=== PATIENT | male | born 1975 | race Caucasian/White ===

== ENCOUNTER 2018-02-17 13:50 | Emergency (ER) | payer MEDICAID ==
[~2018-02-17] VITALS: Ht 182.9 cm; Wt 86.2 kg
[2018-02-17 14:04] VITALS: BP 139/80
[2018-02-17] MEDS ORDERED: KETOROLAC TROMETH 60MG/2ML VIAL IM ONE (14:15)
== END 2018-02-17 14:24 | disposition home or self-care (01) ==
LOC: ER 13:50
DX: K08.89 Other specified disorders of teeth and supporting structures (principal); F17.210 Nicotine dependence, cigarettes, uncomplicated; F12.10 Cannabis abuse, uncomplicated
CPT/HCPCS: 96372

== ENCOUNTER 2019-06-25 12:02 | Emergency (ER) | payer SELFPAY ==
[~2019-06-25] VITALS: Ht 182.9 cm; Wt 83.9 kg
[2019-06-25 12:30] VITALS: BP 115/70
[2019-06-25] MEDS ORDERED: TETANUS-DIPTH-ACEL PERTUSSIS 0.5ML SYRG IM ONE (14:45)
== END 2019-06-25 14:57 | disposition home or self-care (01) ==
LOC: ER 12:02
DX: S61.214A Laceration without foreign body of right ring finger without damage to nail, initial encounter (principal); F12.10 Cannabis abuse, uncomplicated; F17.210 Nicotine dependence, cigarettes, uncomplicated; W26.8XXA Contact with other sharp object(s), not elsewhere classified, initial encounter; Y93.89 Activity, other specified; Y99.8 Other external cause status; Y92.89 Other specified places as the place of occurrence of the external cause
CPT/HCPCS: 12001; 90471; 90715

== ENCOUNTER 2021-03-28 08:48 | Emergency (ER) | payer SELFPAY ==
[~2021-03-28] VITALS: Ht 182.9 cm; Wt 90.7 kg
[2021-03-28] MEDS ORDERED: SODIUM CHLORIDE 0.9% 1,000 ML IV ONE ×2 (09:15)
[2021-03-28] MEDS ORDERED: MORPHINE SULFATE 4 MG/ML SYR/VIAL IV ONE (09:15)
[2021-03-28] MEDS ORDERED: PROCHLORPERAZINE EDISYLATE 5 MG/ML 2ML VIAL IV ONE (09:15)
[2021-03-28 10:28] LABS: Eosinophils # (auto) 0 10 ^3/uL (0-0.8); Eosinophils % (auto) 0.1 % (0.0-7.0); Lymphocytes # (auto) 0.6 10 ^3/uL (0.4-5.4); Mean Corpuscular Hemoglobin 33.2 pg (28.0-32.0); Monocytes # (auto) 0.8 10 ^3/uL (0-1.3); Monocytes % (auto) 10.5 % (0.0-12.0)
[2021-03-28 10:29] LABS: Neutrophils % (auto) 79.7 % (37.0-80.0); White Blood Cell 7.1 10^3/uL (4.4-10.8)
[2021-03-28 10:29] LABS: Urine Bacteria FEW /hpf (None Seen); Urine Blood TRACE /uL (Negative); Urine Hyaline Cast FEW /lpf (0 - 2); Urine Mucus MANY (None Seen); Urine Specific Gravity 1.032 (1.001-1.035); Urine WBC 9 /hpf (0 - 3)
[2021-03-28 10:30] LABS: Basophils # (auto) 0.1 10 ^3/uL (0-0.2); Basophils % (auto) 0.8 % (0.0-2.0); Hematocrit 53.4 % (41.0-53.0); Hemoglobin 18.5 g/dL (13.5-17.5); Lymphocytes % (auto) 8.9 % (10.0-50.0); Mean Corpuscular Hgb Conc. 34.7 g/dL (32.0-36.0); Mean Corpuscular Volume 95.6 fL (80.0-100.0); Neutrophils # (auto) 5.7 10 ^3/uL (1.6-8.6); Red Blood Cells 5.58 10^6/uL (4.5-5.90); Red Cell Distribution Width 14.2 % (11.8-14.3)
[2021-03-28 10:48] LABS: Albumin 3.8 g/dL (3.4-5.0); Calcium 9.5 mg/dL (8.5-10.1); Potassium 3.3 mmol/L (3.5-5.1)
[2021-03-28 10:51] LABS: Amphetamine Screen, Urine NEGATIVE (NEGATIVE); Barbiturate Scree,Urine NEGATIVE (NEGATIVE); Cannabinoid Screen, Urine POSITIVE (NEGATIVE); Cocaine Screen, Urine NEGATIVE (NEGATIVE); Phencyclidine Screen, Urine NEGATIVE (NEGATIVE)
[2021-03-28 10:52] LABS: BUN/Creatinine Ratio 13.3; Bilirubin, Total 1.9 mg/dL (0.2-1.0); Total Protein 7.7 g/dL (6.4-8.2)
[2021-03-28 10:58] LABS: Benzodiazephine Screen, Urine NEGATIVE (NEGATIVE); Opiate Scree,Urine NEGATIVE (NEGATIVE)
[2021-03-28 12:15] VITALS: BP 127/82
== END 2021-03-28 12:25 | disposition home or self-care (01) ==
LOC: ER 08:48
DX: R10.13 Epigastric pain (principal); E86.0 Dehydration; N39.0 Urinary tract infection, site not specified; F12.10 Cannabis abuse, uncomplicated; F10.129 Alcohol abuse with intoxication, unspecified; Y90.9 Presence of alcohol in blood, level not specified
CPT/HCPCS: 36415; 71045; 74176; 80053; 80307; 81001; 84484; 85025; 96361; 96374; 96375; 99285; J0780; J2270; J7030

== ENCOUNTER 2021-04-28 13:15 | Inpatient (IN) | payer MEDICAID ==
[~2021-04-28] VITALS: Ht 182.9 cm; Wt 83.3 kg
[2021-04-28] MEDS ORDERED: SODIUM CHLORIDE 0.9% 1,000 ML IV ONE (13:45)
[2021-04-28] MEDS ORDERED: THIAMINE 100mg/ml INJ (200mg/2ml VIAL) IV ONE (13:45)
[2021-04-28] MEDS ORDERED: ONDANSETRON HCL 4 MG/2 ML VIAL IV ONE (13:45)
[2021-04-28 14:44] LABS: Basophils # (auto) 0 10 ^3/uL (0-0.2); Basophils % (auto) 0.1 % (0.0-2.0); Eosinophils # (auto) 0 10 ^3/uL (0-0.8); Hematocrit 43.7 % (41.0-53.0); Hemoglobin 15.5 g/dL (13.5-17.5); Lymphocytes # (auto) 0.6 10 ^3/uL (0.4-5.4); Lymphocytes % (auto) 5.7 % (10.0-50.0); Mean Corpuscular Hemoglobin 33.8 pg (28.0-32.0); Mean Corpuscular Hgb Conc. 35.5 g/dL (32.0-36.0); Mean Corpuscular Volume 95.3 fL (80.0-100.0); Monocytes # (auto) 1.1 10 ^3/uL (0-1.3); Neutrophils # (auto) 8.1 10 ^3/uL (1.6-8.6); Neutrophils % (auto) 83.2 % (37.0-80.0); Nucleated Red Blood Cells % 0.4 %; Red Blood Cells 4.59 10^6/uL (4.5-5.90); Red Cell Distribution Width 13.7 % (11.8-14.3); White Blood Cell 9.7 10^3/uL (4.4-10.8)
[2021-04-28 14:57] LABS: INR 1.13 (0.9-1.15); Partial Thromboplastin Time 25.4 sec (23.6-33.0)
[2021-04-28 15:11] LABS: Albumin 3.7 g/dL (3.4-5.0); BUN/Creatinine Ratio 25.4; Total Protein 7.6 g/dL (6.4-8.2)
[2021-04-28 15:15] LABS: Potassium 2.8 mmol/L (3.5-5.1)
[2021-04-28] MEDS ORDERED: POTASSIUM EFFERVESENT TAB 25 MEQ PO ONE (15:45)
[2021-04-28] MEDS ORDERED: LACTATED RINGER'S 1,000 ML IV ONE (18:45)
[2021-04-28] MEDS ORDERED: LORazepam 2MG/ML-1ML VIAL IV ONE (21:00)
[2021-04-28 21:29] LABS: Urine Bacteria NONE SEEN /hpf (None Seen); Urine Blood Negative /uL (Negative); Urine Specific Gravity 1.006 (1.001-1.035); Urine WBC 1 /hpf (0 - 3)
[2021-04-28] MEDS: POTASSIUM CHL 20MEQ/50ML 50 ML IV SCH ×2 (22:00→23:56)
[2021-04-28] MEDS ORDERED: ONDANSETRON HCL 4 MG/2 ML VIAL IV PRN (23:00)
[2021-04-28] MEDS ORDERED: ACETAMINOPHEN 325 MG TAB PO PRN (23:00)
[2021-04-28] MEDS ORDERED: DOCUSATE SOD 100 MG CAP PO PRN (23:00)
[2021-04-28] MEDS: SODIUM CHLORIDE 0.9% 1,000 ML IV SCH (23:55)
[2021-04-29] VITALS (7 sets, daily range): BP systolic 100–135; BP diastolic 62–83
[2021-04-29] MEDS ORDERED: MORPHINE SULFATE INJECTION 2 MG/ML SYRG IV PRN
[2021-04-29] MEDS ORDERED: NITROGLYCERIN 0.4 MG SL TAB SL PRN
[2021-04-29] MEDS: HYDROcodone-ACET 5/325MG TAB PO PRN ×2 (00:15→10:41)
[2021-04-29 05:03] LABS: Basophils # (auto) 0 10 ^3/uL (0-0.2); Basophils % (auto) 0.6 % (0.0-2.0); Eosinophils # (auto) 0 10 ^3/uL (0-0.8); Eosinophils % (auto) 0.1 % (0.0-7.0); Hematocrit 36.6 % (41.0-53.0); Lymphocytes # (auto) 0.7 10 ^3/uL (0.4-5.4); Lymphocytes % (auto) 9.1 % (10.0-50.0); Mean Corpuscular Hemoglobin 33.5 pg (28.0-32.0); Mean Corpuscular Hgb Conc. 35.6 g/dL (32.0-36.0); Monocytes # (auto) 0.8 10 ^3/uL (0-1.3); Monocytes % (auto) 10.4 % (0.0-12.0); Neutrophils # (auto) 6.1 10 ^3/uL (1.6-8.6); Neutrophils % (auto) 79.8 % (37.0-80.0); Nucleated Red Blood Cells % 0.5 %; Red Blood Cells 3.89 10^6/uL (4.5-5.90); Red Cell Distribution Width 13.7 % (11.8-14.3); White Blood Cell 7.6 10^3/uL (4.4-10.8)
[2021-04-29 05:25] LABS: Potassium 3.1 mmol/L (3.5-5.1)
[2021-04-29 05:32] LABS: Albumin 2.7 g/dL (3.4-5.0); BUN/Creatinine Ratio 38.8; Bilirubin, Total 6.4 mg/dL (0.2-1.0); Calcium 8.8 mg/dL (8.5-10.1); Total Protein 5.4 g/dL (6.4-8.2)
[2021-04-29] MEDS: LORazepam 2MG/ML-1ML VIAL IV PRN ×3 (07:00→21:25)
[2021-04-29] MEDS: THIAMINE HCL 100 MG TAB PO SCH (10:00)
[2021-04-29] MEDS: ASCORBIC ACID 500 MG TAB PO SCH ×2 (10:00→21:24)
[2021-04-29] MEDS: FOLIC ACID 1 MG TAB PO SCH (10:00)
[2021-04-29] MEDS: ZINC SULFATE 220mg CAP or TAB PO SCH (10:00)
[2021-04-29] MEDS: MULTIPLE VITAMIN TAB PO SCH (10:37)
[2021-04-29] MEDS ORDERED: PANTOPRAZOLE 40 MG/10 ML VIAL INJ IV ONE (11:15)
[2021-04-29] MEDS ORDERED: POTASSIUM CHL 20 Meq TABLET PO ONE (14:15)
[2021-04-29] MEDS: SODIUM CHLORIDE 0.9% 1,000 ML IV SCH (15:40)
[2021-04-30] MEDS: LORazepam 2MG/ML-1ML VIAL IV PRN ×3 (03:48→17:16)
[2021-04-30 05:02] VITALS: BP 126/88
[2021-04-30] MEDS: SODIUM CHLORIDE 0.9% 1,000 ML IV SCH (06:58)
[2021-04-30] MEDS: ASCORBIC ACID 500 MG TAB PO SCH ×2 (09:39→22:01)
[2021-04-30] MEDS: FOLIC ACID 1 MG TAB PO SCH (09:39)
[2021-04-30] MEDS: PANTOPRAZOLE 40 MG/10 ML VIAL INJ IV SCH (09:39)
[2021-04-30] MEDS: MULTIPLE VITAMIN TAB PO SCH (09:39)
[2021-04-30] MEDS: ZINC SULFATE 220mg CAP or TAB PO SCH (09:39)
[2021-04-30] MEDS: THIAMINE HCL 100 MG TAB PO SCH (09:39)
[2021-04-30 10:35] VITALS: BP 128/87
[2021-04-30 11:37] VITALS: BP 119/81
[2021-04-30 16:40] VITALS: BP 115/71
[2021-04-30 21:40] VITALS: BP 130/76
[2021-04-30] MEDS: HYDROcodone-ACET 5/325MG TAB PO PRN (22:02)
[2021-05-01] MEDS: SODIUM CHLORIDE 0.9% 1,000 ML IV SCH (01:00)
[2021-05-01] MEDS: LORazepam 2MG/ML-1ML VIAL IV PRN (01:10)
[2021-05-01 04:38] VITALS: BP 132/76
[2021-05-01 08:56] VITALS: BP_SYST 108; BP_SYST 121; BP_DIAS 59; BP_DIAS 91
[2021-05-01] MEDS: PANTOPRAZOLE 40 MG/10 ML VIAL INJ IV SCH (10:25)
[2021-05-01] MEDS: ZINC SULFATE 220mg CAP or TAB PO SCH (10:25)
[2021-05-01] MEDS: MULTIPLE VITAMIN TAB PO SCH (10:25)
[2021-05-01] MEDS: ASCORBIC ACID 500 MG TAB PO SCH (10:25)
[2021-05-01] MEDS: FOLIC ACID 1 MG TAB PO SCH (10:26)
[2021-05-01] MEDS: THIAMINE HCL 100 MG TAB PO SCH (10:26)
[2021-05-01 10:52] LABS: Hepatitis B Surface Antibody Negative (Negative)
[2021-05-01 11:13] VITALS: BP 121/91
[2021-05-01 11:22] LABS: Hepatitis A Total Antibody Negative (Negative)
[2021-05-01 14:39] LABS: Hepatitis C Antibody Negative (Negative)
== END 2021-05-01 12:49 | disposition home or self-care (01) | DRG 241 ==
LOC: ER 13:15 → EDBD 13:15 → OVERFLOW 04-29 → CENTRAL 04-29 01:01
PROVIDERS: ADMIT Nurse Practitioner Family; ATTEND Family Medicine
DX: K29.20 Alcoholic gastritis without bleeding (principal); E87.1 Hypo-osmolality and hyponatremia; K76.0 Fatty (change of) liver, not elsewhere classified; F10.139 Alcohol abuse with withdrawal, unspecified; E86.0 Dehydration; Y90.0 Blood alcohol level of less than 20 mg/100 ml; E87.6 Hypokalemia; K20.90 Esophagitis, unspecified without bleeding; F17.210 Nicotine dependence, cigarettes, uncomplicated; F12.90 Cannabis use, unspecified, uncomplicated; E87.5 Hyperkalemia; Z20.822 Contact with and (suspected) exposure to COVID-19; Z71.41 Alcohol abuse counseling and surveillance of alcoholic
CPT/HCPCS: 36415; 74176; 76705; 80053; 80320; 81001; 83690; 83735; 85025; 85610; 85730; 86704; 86706; 86708; 86803; 87340; 87426; 93005; 96361; 96374; 96375; C9113; G0378; J2405

== ENCOUNTER 2022-02-15 10:11 | Inpatient (IN) | payer OTHER ==
[~2022-02-15] VITALS: Ht 182.9 cm; Wt 178.8 kg
[2022-02-15] MEDS ORDERED: SODIUM CHLORIDE 0.9% 1,000 ML IV ONE (10:30)
[2022-02-15] MEDS ORDERED: THIAMINE 100mg/ml INJ (200mg/2ml VIAL) IV ONE (10:45)
[2022-02-15 11:09] LABS: Basophils # (auto) 0 10 ^3/uL (0-0.2); Basophils % (auto) 0.2 % (0.0-2.0); Eosinophils # (auto) 0 10 ^3/uL (0-0.8); Eosinophils % (auto) 0.1 % (0.0-7.0); Hematocrit 43.6 % (41.0-53.0); Hemoglobin 14.7 g/dL (13.5-17.5); Lymphocytes # (auto) 0.6 10 ^3/uL (0.4-5.4); Lymphocytes % (auto) 4.4 % (10.0-50.0); Mean Corpuscular Hemoglobin 32.4 pg (28.0-32.0); Mean Corpuscular Hgb Conc. 33.8 g/dL (32.0-36.0); Monocytes # (auto) 1.5 10 ^3/uL (0-1.3); Monocytes % (auto) 11.5 % (0.0-12.0); Neutrophils # (auto) 10.7 10 ^3/uL (1.6-8.6); Neutrophils % (auto) 83.8 % (37.0-80.0); Nucleated Red Blood Cells % 0.1 %; Red Blood Cells 4.54 10^6/uL (4.5-5.90); Red Cell Distribution Width 13.5 % (11.8-14.3); White Blood Cell 12.8 10^3/uL (4.4-10.8)
[2022-02-15 11:27] LABS: Amphetamine Screen, Urine NEGATIVE (NEGATIVE); Barbiturate Scree,Urine NEGATIVE (NEGATIVE); Benzodiazephine Screen, Urine NEGATIVE (NEGATIVE); Cannabinoid Screen, Urine NEGATIVE (NEGATIVE); Cocaine Screen, Urine NEGATIVE (NEGATIVE); Opiate Scree,Urine NEGATIVE (NEGATIVE); Phencyclidine Screen, Urine NEGATIVE (NEGATIVE)
[2022-02-15 11:31] LABS: Albumin 3.7 g/dL (3.4-5.0); Anion Gap 13 (5-15); Blood Alcohol < 3.0 mg/dL (0-5); Calcium 9.9 mg/dL (8.5-10.1); Carbon Dioxide 36 mmol/L (21-32); Chloride 78 mmol/L (98-107); Glucose 174 mg/dL (74-106); Sodium 127 mmol/L (136-145)
[2022-02-15 11:46] LABS: Alanine Aminotransferase 110 U/L (16-61); Alkaline Phosphatase 120 U/L (45-117); Aspartate Aminotransferase 115 U/L (15-37); BUN/Creatinine Ratio 41.3; Blood Urea Nitrogen 64 mg/dL (7-18); GFR African American 62 mL/min; GFR Non-African American 51 mL/min; Total Protein 7.6 g/dL (6.4-8.2)
[2022-02-15 11:47] LABS: Potassium 2.4 mmol/L (3.5-5.1)
[2022-02-15] MEDS ORDERED: cefTRIAXone 1GM/50ML D5W 50 ML IV ONE (13:45)
[2022-02-15] MEDS: POTASSIUM CHL 20MEQ/100ML 100 ML IV SCH ×2 (14:47→16:34)
[2022-02-15] MEDS ORDERED: chlordiazePOXIDE HCL 25 MG CAP PO PRN (16:45)
[2022-02-15] MEDS ORDERED: ONDANSETRON HCL 4 MG/2 ML VIAL IV PRN (16:45)
[2022-02-15] MEDS ORDERED: LORazepam 2MG/ML-1ML VIAL IV PRN (16:45)
[2022-02-15] MEDS ORDERED: PANTOPRAZOLE 40 MG/10 ML VIAL INJ IV ONE (16:45)
[2022-02-15] MEDS ORDERED: chlordiazePOXIDE HCL 25 MG CAP PO ONE (16:45)
[2022-02-15] MEDS ORDERED: MORPHINE SULFATE INJ 2 MG/ml SYRG IV PRN (17:00)
[2022-02-15] MEDS ORDERED: POTASSIUM EFFERVESENT TAB 25 MEQ PO ONE (17:00)
[2022-02-15] MEDS ORDERED: NITROGLYCERIN 0.4 MG SL TAB SL PRN (17:00)
[2022-02-15] MEDS ORDERED: DEXTROSE (50%) 50ML SYRG IV PRN (17:15)
[2022-02-15] MEDS ORDERED: levoFLOXacin 500MG 100 ML IV ONE (17:15)
[2022-02-15] MEDS: SODIUM CHLORIDE 0.9% 1,000 ML IV SCH (17:30)
[2022-02-15 17:34] LABS: Amylase 33 U/L (25-115); Lipase 63 U/L (73-393)
[2022-02-15] MEDS ORDERED: LORazepam 2MG/ML-1ML VIAL IV ONE (21:00)
[2022-02-15] MEDS ORDERED: LORazepam 2MG/ML-1ML VIAL IM ONE (21:00)
[2022-02-15] MEDS: ACCU-CHEK COMFORT CURVE STRIP VI SCH (22:00)
[2022-02-15] MEDS: InsuLIN REG 1unit/0.01ml Soln (100units/ml) SC SCH (22:00)
[2022-02-15] MEDS ORDERED: diphenhdrAMINE HCL 50 MG/1 ML VL IM ONE (22:45)
[2022-02-15] MEDS ORDERED: LORazepam 2MG/ML-1ML VIAL IM PRN (22:45)
[2022-02-15] MEDS ORDERED: HALOPERIDOL LACTATE 5 MG/ML INJ VIAL IM ONE (22:45)
[2022-02-15] MEDS ORDERED: LORazepam 2MG/ML-1ML VIAL ONE (22:49)
[2022-02-15] MEDS ORDERED: diphenhdrAMINE HCL 50 MG/1 ML VL ONE (22:49)
[2022-02-15] MEDS ORDERED: HALOPERIDOL LACTATE 5 MG/ML INJ VIAL ONE (22:50)
[2022-02-16] MEDS ORDERED: LORazepam 2MG/ML-1ML VIAL IV ONE ×2 (01:45→04:45)
[2022-02-16] MEDS: FOLIC ACID 1 MG, MULTIPLE VITAMIN 10 ML, MAGNESIUM SULF SDV 50% 8 MEQ, THIAMINE INJ 100... INJ SCH ×10 (01:46→18:27)
[2022-02-16 04:55] LABS: Basophils # (auto) 0 10 ^3/uL (0-0.2); Basophils % (auto) 0.1 % (0.0-2.0); Eosinophils # (auto) 0 10 ^3/uL (0-0.8); Eosinophils % (auto) 0.1 % (0.0-7.0); Hematocrit 39.3 % (41.0-53.0); Hemoglobin 13.4 g/dL (13.5-17.5); Lymphocytes # (auto) 1.1 10 ^3/uL (0.4-5.4); Lymphocytes % (auto) 13.3 % (10.0-50.0); Mean Corpuscular Hemoglobin 32.7 pg (28.0-32.0); Mean Corpuscular Volume 96.1 fL (80.0-100.0); Monocytes # (auto) 1.2 10 ^3/uL (0-1.3); Monocytes % (auto) 14.5 % (0.0-12.0); Nucleated Red Blood Cells % 0.1 %; Red Blood Cells 4.09 10^6/uL (4.5-5.90); Red Cell Distribution Width 13.3 % (11.8-14.3); White Blood Cell 8.3 10^3/uL (4.4-10.8)
[2022-02-16 05:21] LABS: Albumin 3.2 g/dL (3.4-5.0); BUN/Creatinine Ratio 59.7; Calcium 8.6 mg/dL (8.5-10.1)
[2022-02-16 05:31] LABS: Bilirubin, Total 2.2 mg/dL (0.2-1.0); Total Protein 6.2 g/dL (6.4-8.2)
[2022-02-16 05:43] LABS: Potassium 2.7 mmol/L (3.5-5.1)
[2022-02-16] MEDS: InsuLIN REG 1unit/0.01ml Soln (100units/ml) SC SCH ×4 (07:00→22:00)
[2022-02-16] MEDS: POTASSIUM CHL 20MEQ/100ML 100 ML IV SCH ×3 (07:30→12:52)
[2022-02-16] MEDS: ACCU-CHEK COMFORT CURVE STRIP VI SCH ×4 (10:41→22:17)
[2022-02-16] MEDS: ENOXAPARIN SOD 40 MG/0.4 ML SYRINGE SC SCH (10:43)
[2022-02-16] MEDS: PANTOPRAZOLE 40 MG/10 ML VIAL INJ IV SCH (10:43)
[2022-02-16] MEDS: SODIUM CHLORIDE 0.9% 1,000 ML IV SCH (10:43)
[2022-02-16] MEDS: levoFLOXacin 500MG 100 ML IV SCH (17:29)
[2022-02-16] MEDS ORDERED: POTASSIUM CHL 20MEQ/100ML 100 ML IV ONE (21:15)
[2022-02-17] VITALS (7 sets, daily range): BP systolic 96–111; BP diastolic 64–75
[2022-02-17] MEDS: SODIUM CHLORIDE 0.9% 1,000 ML IV SCH ×2 (03:18→20:38)
[2022-02-17 06:07] LABS: Basophils # (auto) 0 10 ^3/uL (0-0.2); Basophils % (auto) 0.1 % (0.0-2.0); Eosinophils # (auto) 0.1 10 ^3/uL (0-0.8); Eosinophils % (auto) 1.6 % (0.0-7.0); Hematocrit 34.4 % (41.0-53.0); Hemoglobin 11.7 g/dL (13.5-17.5); Lymphocytes # (auto) 0.8 10 ^3/uL (0.4-5.4); Lymphocytes % (auto) 16.1 % (10.0-50.0); Mean Corpuscular Volume 97.1 fL (80.0-100.0); Monocytes # (auto) 0.9 10 ^3/uL (0-1.3); Neutrophils # (auto) 3.3 10 ^3/uL (1.6-8.6); Neutrophils % (auto) 64.1 % (37.0-80.0); Nucleated Red Blood Cells % 0.1 %; Red Blood Cells 3.54 10^6/uL (4.5-5.90); Red Cell Distribution Width 13.6 % (11.8-14.3); White Blood Cell 5.2 10^3/uL (4.4-10.8)
[2022-02-17 06:08] LABS: Monocytes % (auto) 18.1 % (0.0-12.0)
[2022-02-17] MEDS: InsuLIN REG 1unit/0.01ml Soln (100units/ml) SC SCH ×4 (06:10→21:40)
[2022-02-17] MEDS: ACCU-CHEK COMFORT CURVE STRIP VI SCH ×4 (06:11→21:40)
[2022-02-17 06:12] LABS: Albumin 2.7 g/dL (3.4-5.0); Calcium 8.3 mg/dL (8.5-10.1)
[2022-02-17 06:16] LABS: BUN/Creatinine Ratio 41.2; Bilirubin, Total 1.6 mg/dL (0.2-1.0); Total Protein 5.3 g/dL (6.4-8.2)
[2022-02-17] MEDS: HYDROcodone-ACET 5/325MG TAB PO PRN (06:58)
[2022-02-17] MEDS: PANTOPRAZOLE 40 MG/10 ML VIAL INJ IV SCH (08:39)
[2022-02-17] MEDS: ENOXAPARIN SOD 40 MG/0.4 ML SYRINGE SC SCH (08:39)
[2022-02-17] MEDS: levoFLOXacin 500MG 100 ML IV SCH (08:44)
[2022-02-17] MEDS ORDERED: POTASSIUM CHL 20 Meq TABLET PO ONE (10:30)
[2022-02-17] MEDS: FOLIC ACID 1 MG, MULTIPLE VITAMIN 10 ML, MAGNESIUM SULF SDV 50% 8 MEQ, THIAMINE INJ 100... INJ SCH ×5 (12:33)
[2022-02-17] MEDS ORDERED: chlordiazePOXIDE HCL 25 MG CAP PO PRN (14:30)
[2022-02-17] MEDS: chlordiazePOXIDE HCL 25 MG CAP PO SCH ×4 (14:58→20:35)
[2022-02-17] MEDS ORDERED: MORPHINE SULFATE 4 MG/ML SYR/VIAL IV ONE (18:45)
[2022-02-17] MEDS ORDERED: ASPirin 325 MG TAB PO ONE (18:45)
[2022-02-17] MEDS ORDERED: SODIUM CHLORIDE 0.9% 1,000 ML IV ONE (19:00)
[2022-02-17] MEDS ORDERED: GABAPENTIN 400 MG CAP PO ONE (21:15)
[2022-02-17] MEDS: GUANFACINE 1 MG PO SCH (22:00)
[2022-02-18] MEDS: chlordiazePOXIDE HCL 25 MG CAP PO SCH ×4 (03:50→21:25)
[2022-02-18 04:48] VITALS: BP 106/75
[2022-02-18] MEDS: GABAPENTIN 400 MG CAP PO SCH ×3 (05:49→21:25)
[2022-02-18] MEDS: ACCU-CHEK COMFORT CURVE STRIP VI SCH ×4 (05:58→21:30)
[2022-02-18] MEDS: InsuLIN REG 1unit/0.01ml Soln (100units/ml) SC SCH ×4 (05:58→21:30)
[2022-02-18] MEDS: GUANFACINE 1 MG PO SCH ×3 (06:00→21:25)
[2022-02-18 09:16] VITALS: BP 110/68
[2022-02-18] MEDS ORDERED: THIAMINE 100mg/ml INJ (200mg/2ml VIAL) IV SCH (10:00)
[2022-02-18 10:17] LABS: Hematocrit 33.4 % (41.0-53.0); Hemoglobin 11.2 g/dL (13.5-17.5); Mean Corpuscular Hemoglobin 33.1 pg (28.0-32.0); Mean Corpuscular Hgb Conc. 33.7 g/dL (32.0-36.0); Mean Corpuscular Volume 98.2 fL (80.0-100.0); Red Cell Distribution Width 13.3 % (11.8-14.3); White Blood Cell 7.9 10^3/uL (4.4-10.8)
[2022-02-18 10:20] LABS: Band Neutrophils % (manual) 0; Basophils % (manual) 0 (0.0-2.0); Blast Cells 0; Metamyelocytes % 0; Myelocytes % 0; Promyelocytes % 0; Reactive Lymphocytes 0
[2022-02-18] MEDS: ENOXAPARIN SOD 40 MG/0.4 ML SYRINGE SC SCH (10:30)
[2022-02-18] MEDS: PANTOPRAZOLE 40 MG/10 ML VIAL INJ IV SCH (10:30)
[2022-02-18] MEDS: levoFLOXacin 500MG 100 ML IV SCH (10:31)
[2022-02-18 10:58] LABS: Urine Bacteria NONE SEEN /hpf (None Seen); Urine Blood 3+ /uL (Negative); Urine Specific Gravity 1.006 (1.001-1.035); Urine WBC 10 /hpf (0 - 3)
[2022-02-18] MEDS: SODIUM CHLORIDE 0.9% 1,000 ML IV SCH (11:25)
[2022-02-18 11:43] LABS: Eosinophils % (manual) 4 (0-7); Lymphocytes % (manual) 13 (10.0-50.0); Monocytes % (manual) 17 (0-12)
[2022-02-18 12:35] VITALS: BP 99/60
[2022-02-18] MEDS: SODIUM CHL 0.9% IV SCH (12:40)
[2022-02-18] MEDS: THIAMINE IV SCH (12:40)
[2022-02-18 12:47] LABS: Cholesterol 144 mg/dL (< 200); HDL Cholesterol 55 mg/dL (40-59); LDL Cholesterol 61 mg/dL (< 100); Triglycerides 69 mg/dL (< 150)
[2022-02-18] MEDS: FOLIC ACID 1 MG, MULTIPLE VITAMIN 10 ML, MAGNESIUM SULF SDV 50% 8 MEQ, THIAMINE INJ 100... INJ SCH ×15 (12:49→18:49)
[2022-02-18 17:03] VITALS: BP 104/70
[2022-02-18] MEDS: HYDROcodone-ACET 5/325MG TAB PO PRN (19:45)
[2022-02-18 22:00] VITALS: BP 128/68
[2022-02-19] VITALS (7 sets, daily range): BP systolic 86–108; BP diastolic 57–73
[2022-02-19] MEDS: chlordiazePOXIDE HCL 25 MG CAP PO SCH ×4 (02:31→21:48)
[2022-02-19] MEDS: SODIUM CHLORIDE 0.9% 1,000 ML IV SCH ×2 (04:05→20:45)
[2022-02-19] MEDS: HYDROcodone-ACET 5/325MG TAB PO PRN ×3 (05:25→21:47)
[2022-02-19] MEDS: GABAPENTIN 400 MG CAP PO SCH ×3 (05:25→21:48)
[2022-02-19] MEDS: InsuLIN REG 1unit/0.01ml Soln (100units/ml) SC SCH (06:20)
[2022-02-19] MEDS: ACCU-CHEK COMFORT CURVE STRIP VI SCH (06:21)
[2022-02-19 06:25] LABS: Hematocrit 34.5 % (41.0-53.0); Hemoglobin 11.6 g/dL (13.5-17.5); Mean Corpuscular Hemoglobin 33.6 pg (28.0-32.0); Mean Corpuscular Hgb Conc. 33.6 g/dL (32.0-36.0); Red Blood Cells 3.45 10^6/uL (4.5-5.90); Red Cell Distribution Width 13.5 % (11.8-14.3); White Blood Cell 8.8 10^3/uL (4.4-10.8)
[2022-02-19 06:37] LABS: Potassium 5.2 mmol/L (3.5-5.1)
[2022-02-19 06:43] LABS: Band Neutrophils % (manual) 0; Basophils % (manual) 0 (0.0-2.0); Blast Cells 0; Metamyelocytes % 0; Myelocytes % 0; Promyelocytes % 0; Reactive Lymphocytes 0
[2022-02-19 06:45] LABS: Albumin 2.7 g/dL (3.4-5.0); BUN/Creatinine Ratio 29.3; Bilirubin, Total 0.7 mg/dL (0.2-1.0); Calcium 9.5 mg/dL (8.5-10.1); Total Protein 5.8 g/dL (6.4-8.2)
[2022-02-19 08:43] LABS: Eosinophils % (manual) 1 (0-7); Lymphocytes % (manual) 14 (10.0-50.0); Monocytes % (manual) 23 (0-12)
[2022-02-19] MEDS: levoFLOXacin 500MG 100 ML IV SCH (08:48)
[2022-02-19] MEDS: PANTOPRAZOLE 40 MG/10 ML VIAL INJ IV SCH (08:49)
[2022-02-19] MEDS: GUANFACINE 1 MG PO SCH (08:56)
[2022-02-19] MEDS: THIAMINE IV SCH (10:57)
[2022-02-19] MEDS: SODIUM CHL 0.9% IV SCH (10:57)
[2022-02-19] MEDS ORDERED: MANNITOL FTV 25% 12.5 GM/50 ML 50 ML IV ONE (14:00)
[2022-02-19] MEDS ORDERED: FOLIC ACID 1 MG, MULTIPLE VITAMIN 10 ML, MAGNESIUM SULF SDV 50% 8 MEQ, THIAMINE INJ 100... INJ SCH ×5 (20:00)
[2022-02-20] MEDS: chlordiazePOXIDE HCL 25 MG CAP PO SCH ×2 (03:10→08:36)
[2022-02-20 04:29] VITALS: BP 111/71
[2022-02-20 05:27] LABS: Hematocrit 34.2 % (41.0-53.0); Hemoglobin 11.4 g/dL (13.5-17.5); Mean Corpuscular Hemoglobin 33.3 pg (28.0-32.0); Mean Corpuscular Hgb Conc. 33.3 g/dL (32.0-36.0); Red Blood Cells 3.42 10^6/uL (4.5-5.90); Red Cell Distribution Width 13.8 % (11.8-14.3); White Blood Cell 8.9 10^3/uL (4.4-10.8)
[2022-02-20 05:33] LABS: Basophils % (manual) 0 (0.0-2.0); Blast Cells 0; Myelocytes % 0; Promyelocytes % 0; Reactive Lymphocytes 0
[2022-02-20 05:37] LABS: Albumin 2.7 g/dL (3.4-5.0); Magnesium 2.2 mg/dL (1.6-2.6)
[2022-02-20 05:39] LABS: BUN/Creatinine Ratio 24.1
[2022-02-20 05:41] LABS: Bilirubin, Total 0.5 mg/dL (0.2-1.0); Total Protein 5.7 g/dL (6.4-8.2)
[2022-02-20] MEDS ORDERED: GABAPENTIN 300 MG CAP PO SCH (06:00)
[2022-02-20] MEDS: HYDROcodone-ACET 5/325MG TAB PO PRN (06:29)
[2022-02-20 08:21] LABS: Band Neutrophils % (manual) 5; Eosinophils % (manual) 3 (0-7); Lymphocytes % (manual) 12 (10.0-50.0); Metamyelocytes % 2; Monocytes % (manual) 11 (0-12)
[2022-02-20 08:30] VITALS: BP 99/59
[2022-02-20] MEDS: PANTOPRAZOLE 40 MG/10 ML VIAL INJ IV SCH (08:36)
[2022-02-20] MEDS: THIAMINE IV SCH (08:37)
[2022-02-20] MEDS: SODIUM CHL 0.9% IV SCH (08:37)
[2022-02-20] MEDS ORDERED: FOLI1TAB6 PO (09:41)
[2022-02-20] MEDS ORDERED: THIA100T5 PO (09:41)
[2022-02-20] MEDS ORDERED: CHL25C PO (09:41)
[2022-02-20] MEDS ORDERED: GABA300C10 PO (09:41)
[2022-02-20] MEDS ORDERED: PANT40T PO (09:41)
[2022-02-20 10:47] VITALS: BP 99/59
[2022-02-20 12:30] VITALS: BP 100/62
[2022-02-22] MEDS ORDERED: GABAPENTIN 300 MG CAP PO SCH (06:00)
== END 2022-02-20 13:47 | disposition home or self-care (01) | DRG 469 ==
LOC: ER 10:11 → TELE 16:59 → TELE-WESTW 02-16 15:47
PROVIDERS: ADMIT Nurse Practitioner Family; ATTEND Family Medicine
DX: N17.9 Acute kidney failure, unspecified (principal); F10.231 Alcohol dependence with withdrawal delirium; E87.1 Hypo-osmolality and hyponatremia; E86.0 Dehydration; E87.6 Hypokalemia; F31.9 Bipolar disorder, unspecified; F20.9 Schizophrenia, unspecified; N20.0 Calculus of kidney; E87.5 Hyperkalemia; Z20.822 Contact with and (suspected) exposure to COVID-19; D72.829 Elevated white blood cell count, unspecified; F12.90 Cannabis use, unspecified, uncomplicated; F17.210 Nicotine dependence, cigarettes, uncomplicated; F19.10 Other psychoactive substance abuse, uncomplicated; Z71.41 Alcohol abuse counseling and surveillance of alcoholic
CPT/HCPCS: 36415; 70450; 70551; 71045; 74176; 76705; 76856; 80053; 80061; 80307; 80320; 81001; 82140; 82150; 82728; 82962; 83036; 83605; 83690; 83735; 83880; 84443; 84484; 85007; 85025; 85027; 86704; 86706; 86708; 86803; 87040; 87086; 87340; 87426; 93306; 95819; 96361; 96365; 97116; 97162; 97530; C9113; G0378; J0696; J1956; J3480

== ENCOUNTER 2022-08-25 10:47 | Emergency (ER) | payer OTHER ==
[~2022-08-25 10:47] MED LIST: CHL25C PO; FOLI1TAB6 PO; GABA300C10 PO; PANT40T PO; THIA100T5 PO
[2022-08-25] MEDS ORDERED: SODIUM CHLORIDE 0.9% 1,000 ML IV ONE (12:15)
[2022-08-25] MEDS ORDERED: KETOROLAC TROMETH 30 MG/ML 1ML VIAL IV ONE (12:15)
[2022-08-25 12:49] LABS: Basophils # (auto) 0.1 10 ^3/uL (0-0.2); Basophils % (auto) 1.2 % (0.0-2.0); Eosinophils # (auto) 0.3 10 ^3/uL (0-0.8); Eosinophils % (auto) 3.1 % (0.0-7.0); Hematocrit 42.5 % (41.0-53.0); Hemoglobin 14.4 g/dL (13.5-17.5); Lymphocytes # (auto) 1.4 10 ^3/uL (0.4-5.4); Lymphocytes % (auto) 16.8 % (10.0-50.0); Mean Corpuscular Hemoglobin 29.2 pg (28.0-32.0); Mean Corpuscular Hgb Conc. 33.8 g/dL (32.0-36.0); Mean Corpuscular Volume 86.5 fL (80.0-100.0); Monocytes # (auto) 0.6 10 ^3/uL (0-1.3); Monocytes % (auto) 6.7 % (0.0-12.0); Neutrophils % (auto) 72.2 % (37.0-80.0); Red Blood Cells 4.92 10^6/uL (4.5-5.90); Red Cell Distribution Width 14.4 % (11.8-14.3); White Blood Cell 8.3 10^3/uL (4.4-10.8)
[2022-08-25 12:59] LABS: Albumin 3.4 g/dL (3.4-5.0); Calcium 9.3 mg/dL (8.5-10.1)
[2022-08-25 13:02] LABS: BUN/Creatinine Ratio 20.3 (10.0-20.0); Bilirubin, Total 0.4 mg/dL (0.2-1.0); Total Protein 6.6 g/dL (6.4-8.2)
[2022-08-25] MEDS ORDERED: IOHEXOL 300 MG/ML 100ML BOTTLE IJ ONE (13:47)
[2022-08-25 14:36] LABS: Urine WBC None Seen /hpf (0 - 3)
[2022-08-25 15:04] LABS: Urine Bacteria NONE SEEN /hpf (None Seen); Urine Blood Negative /uL (Negative); Urine Mucus FEW (None Seen)
[2022-08-25 15:12] LABS: Urine Specific Gravity > 1.050 (1.001-1.035)
[2022-08-25 17:00] VITALS: BP 121/70
== END 2022-08-25 17:02 | disposition home or self-care (01) ==
LOC: ER 10:47
DX: K40.21 Bilateral inguinal hernia, without obstruction or gangrene, recurrent (principal); F17.210 Nicotine dependence, cigarettes, uncomplicated; F12.10 Cannabis abuse, uncomplicated
CPT/HCPCS: 36415; 74177; 80053; 81001; 83690; 85025; 96361; 96374; 99285; J1885; J7030; Q9967

== ENCOUNTER 2022-08-30 05:41 | Inpatient (IN) | payer OTHER ==
[~2022-08-30] VITALS: Ht 182.9 cm; Wt 85.5 kg
[2022-08-30 07:36] LABS: Basophils # (auto) 0.1 10 ^3/uL (0-0.2); Basophils % (auto) 1.1 % (0.0-2.0); Eosinophils # (auto) 0.2 10 ^3/uL (0-0.8); Eosinophils % (auto) 3.1 % (0.0-7.0); Hematocrit 43.4 % (41.0-53.0); Hemoglobin 14.8 g/dL (13.5-17.5); Lymphocytes # (auto) 1.4 10 ^3/uL (0.4-5.4); Lymphocytes % (auto) 17.6 % (10.0-50.0); Mean Corpuscular Hemoglobin 29.3 pg (28.0-32.0); Monocytes # (auto) 0.6 10 ^3/uL (0-1.3); Monocytes % (auto) 7.1 % (0.0-12.0); Neutrophils # (auto) 5.7 10 ^3/uL (1.6-8.6); Neutrophils % (auto) 71.1 % (37.0-80.0); Nucleated Red Blood Cells % 0.1 %; Red Blood Cells 5.05 10^6/uL (4.5-5.90); Red Cell Distribution Width 14.5 % (11.8-14.3)
[2022-08-30 07:56] LABS: Albumin 3.3 g/dL (3.4-5.0); BUN/Creatinine Ratio 17.7 (10.0-20.0); Calcium 8.7 mg/dL (8.5-10.1); Potassium 3.8 mmol/L (3.5-5.1)
[2022-08-30 07:57] LABS: Lactic Acid w/Reflex 2.4 mmol/L (0.4-2.0)
[2022-08-30 07:58] LABS: Bilirubin, Total 0.4 mg/dL (0.2-1.0); Total Protein 6.5 g/dL (6.4-8.2)
[2022-08-30 08:44] LABS: INR 0.99 (0.9-1.15)
[2022-08-30] MEDS ORDERED: SODIUM CHLORIDE 0.9% 1,000 ML IV ONE ×2 (10:00)
[2022-08-30] MEDS ORDERED: PANTOPRAZOLE 40 MG/10 ML VIAL INJ IV ONE (12:45)
[2022-08-30] MEDS ORDERED: DOCUSATE SOD 100 MG CAP PO PRN (12:45)
[2022-08-30] MEDS ORDERED: ACETAMINOPHEN 325 MG TAB PO PRN (12:45)
[2022-08-30] MEDS: HYDROcodone-ACET 5/325MG TAB PO PRN ×3 (13:28→23:10)
[2022-08-30] MEDS: SODIUM CHLORIDE 0.9% 1,000 ML IV SCH ×2 (13:34→20:12)
[2022-08-30 13:57] LABS: Urine Bacteria NONE SEEN /hpf (None Seen); Urine Blood Negative /uL (Negative); Urine Specific Gravity 1.014 (1.001-1.035); Urine WBC 2 /hpf (0 - 3)
[2022-08-30 14:20] LABS: Alcohol, Urine < 3.0 mg/dL (0-10); Amphetamine Screen, Urine NEGATIVE (NEGATIVE); Barbiturate Scree,Urine NEGATIVE (NEGATIVE); Benzodiazephine Screen, Urine NEGATIVE (NEGATIVE); Cannabinoid Screen, Urine POSITIVE (NEGATIVE); Cocaine Screen, Urine NEGATIVE (NEGATIVE); Phencyclidine Screen, Urine NEGATIVE (NEGATIVE)
[2022-08-30 14:27] LABS: Opiate Scree,Urine NEGATIVE (NEGATIVE)
[2022-08-30] MEDS: chlordiazePOXIDE HCL 25 MG CAP PO SCH ×2 (17:21→23:10)
[2022-08-30] MEDS: GABAPENTIN 300 MG CAP PO SCH ×2 (17:21→23:10)
[2022-08-30 22:00] VITALS: BP 95/57
[2022-08-30 23:20] VITALS: BP 92/57
[2022-08-31] MEDS ORDERED: PNEUMOCOCCAL VACC POLYS 25 MCG/0.5 ML VIAL IM SCH (00:15)
[2022-08-31 05:00] VITALS: BP 93/59
[2022-08-31] MEDS: chlordiazePOXIDE HCL 25 MG CAP PO SCH ×2 (06:00→14:00)
[2022-08-31] MEDS: GABAPENTIN 300 MG CAP PO SCH ×3 (06:00→22:04)
[2022-08-31 06:14] LABS: Basophils # (auto) 0.1 10 ^3/uL (0-0.2); Basophils % (auto) 0.8 % (0.0-2.0); Eosinophils # (auto) 0.2 10 ^3/uL (0-0.8); Hematocrit 42.2 % (41.0-53.0); Hemoglobin 14.3 g/dL (13.5-17.5); Lymphocytes # (auto) 1.7 10 ^3/uL (0.4-5.4); Lymphocytes % (auto) 22.4 % (10.0-50.0); Mean Corpuscular Hemoglobin 29.5 pg (28.0-32.0); Mean Corpuscular Hgb Conc. 33.9 g/dL (32.0-36.0); Mean Corpuscular Volume 86.9 fL (80.0-100.0); Monocytes # (auto) 0.5 10 ^3/uL (0-1.3); Neutrophils # (auto) 5.2 10 ^3/uL (1.6-8.6); Neutrophils % (auto) 66.8 % (37.0-80.0); Red Blood Cells 4.86 10^6/uL (4.5-5.90); Red Cell Distribution Width 14.4 % (11.8-14.3); White Blood Cell 7.8 10^3/uL (4.4-10.8)
[2022-08-31 06:42] LABS: Potassium 4.2 mmol/L (3.5-5.1)
[2022-08-31 06:55] LABS: Albumin 2.9 g/dL (3.4-5.0); BUN/Creatinine Ratio 23.7 (10.0-20.0); Bilirubin, Total 0.2 mg/dL (0.2-1.0); Calcium 8.3 mg/dL (8.5-10.1)
[2022-08-31] MEDS ORDERED: BUPIVACAINE IMPLANT 3x100mg IL ONE (07:00)
[2022-08-31] MEDS: PANTOPRAZOLE 40 MG/10 ML VIAL INJ IV SCH (08:33)
[2022-08-31] MEDS: NICOTINE 21MG/24 HR TOPICAL PATCH TD SCH (08:33)
[2022-08-31 09:00] VITALS: BP 118/65
[2022-08-31] MEDS: FOLIC ACID 1 MG TAB PO SCH (10:00)
[2022-08-31] MEDS: THIAMINE HCL 100 MG TAB PO SCH (10:00)
[2022-08-31] MEDS ORDERED: ceFAZolin 1GM/50ML 100 ML IV ONE (10:42)
[2022-08-31] MEDS ORDERED: ROCURONIUM 10MG/ML 10ML VIAL IV ONE (11:52)
[2022-08-31] MEDS ORDERED: MIDAZOLAM HCL 2MG/2ML 2ml VIAL (1mg/ml) ONE (11:52)
[2022-08-31] MEDS ORDERED: fentaNYL CITRATE 5 ML ONE (11:52)
[2022-08-31] MEDS ORDERED: PROPOFOL 10 MG/ML 20 ML IV ONE (12:17)
[2022-08-31] MEDS ORDERED: ONDANSETRON HCL 4 MG/2 ML VIAL ONE (12:17)
[2022-08-31] MEDS ORDERED: LIDOCAINE 2% (LOCAL ANESTH.) PF 5ml SDV ONE (12:17)
[2022-08-31] MEDS ORDERED: NEOSTIGMINE 1 MG/ML INJ (10mg/10ML VIAL) ONE (13:18)
[2022-08-31] MEDS ORDERED: GLYCOPYRROLATE 0.2 MG/ML 1ML VIAL ONE (13:18)
[2022-08-31] MEDS ORDERED: ONDANSETRON HCL 4 MG/2 ML VIAL IV PRN (13:45)
[2022-08-31] MEDS ORDERED: HYDROmorphone HCL 2 MG/ML VL/or syr IV PRN ×2 (13:45)
[2022-08-31] MEDS ORDERED: HYDROcodone-ACET 5/325MG TAB PO ONE (14:00)
[2022-08-31] MEDS ORDERED: LIDOCAINE W/ EPINEPHRINE 1% 20ML VIAL ONE (14:11)
[2022-08-31] MEDS ORDERED: BUPIVACAINE 0.25% INJ 50ML VIAL ONE (14:11)
[2022-08-31] MEDS ORDERED: HYDROcodone-ACET 10/325MG TAB PO ONE (14:15)
[2022-08-31] MEDS: HYDROmorphone HCL 2 MG/ML VL/or syr IV PRN ×2 (14:54→18:45)
[2022-08-31] MEDS: SODIUM CHLORIDE 0.9% 1,000 ML IV SCH (16:26)
[2022-08-31 16:33] VITALS: BP 95/65
[2022-08-31 22:00] VITALS: BP 91/54
[2022-08-31] MEDS: SENNA 8.6 MG TAB PO SCH (22:05)
[2022-08-31] MEDS: DOCUSATE SOD 100 MG CAP PO SCH (22:05)
[2022-08-31] MEDS: HYDROcodone-ACET 5/325MG TAB PO PRN (22:21)
[2022-09-01] MEDS: HYDROmorphone HCL 2 MG/ML VL/or syr IV PRN ×2 (02:00→21:17)
[2022-09-01 05:00] VITALS: BP 102/57
[2022-09-01] MEDS: GABAPENTIN 300 MG CAP PO SCH ×3 (05:45→21:14)
[2022-09-01] MEDS: SODIUM CHLORIDE 0.9% 1,000 ML IV SCH ×3 (05:49→20:51)
[2022-09-01] MEDS: HYDROcodone-ACET 5/325MG TAB PO PRN ×3 (06:00→17:05)
[2022-09-01 06:17] LABS: Basophils # (auto) 0 10 ^3/uL (0-0.2); Basophils % (auto) 0.2 % (0.0-2.0); Eosinophils # (auto) 0.1 10 ^3/uL (0-0.8); Eosinophils % (auto) 0.5 % (0.0-7.0); Hematocrit 44.5 % (41.0-53.0); Hemoglobin 14.8 g/dL (13.5-17.5); Lymphocytes % (auto) 6.9 % (10.0-50.0); Mean Corpuscular Hemoglobin 29.3 pg (28.0-32.0); Mean Corpuscular Hgb Conc. 33.2 g/dL (32.0-36.0); Mean Corpuscular Volume 88.2 fL (80.0-100.0); Monocytes # (auto) 0.8 10 ^3/uL (0-1.3); Monocytes % (auto) 5.2 % (0.0-12.0); Neutrophils # (auto) 12.8 10 ^3/uL (1.6-8.6); Neutrophils % (auto) 87.2 % (37.0-80.0); Nucleated Red Blood Cells % 0.1 %; Red Blood Cells 5.05 10^6/uL (4.5-5.90); Red Cell Distribution Width 14.4 % (11.8-14.3); White Blood Cell 14.7 10^3/uL (4.4-10.8)
[2022-09-01 06:51] LABS: Calcium 8.4 mg/dL (8.5-10.1); Potassium 4.2 mmol/L (3.5-5.1)
[2022-09-01 06:53] LABS: BUN/Creatinine Ratio 15.1 (10.0-20.0)
[2022-09-01 06:56] LABS: Bilirubin, Total 0.6 mg/dL (0.2-1.0)
[2022-09-01 08:00] VITALS: BP 92/57
[2022-09-01 09:00] VITALS: BP 92/57
[2022-09-01] MEDS: DOCUSATE SOD 100 MG CAP PO SCH ×2 (11:12→21:14)
[2022-09-01] MEDS: FOLIC ACID 1 MG TAB PO SCH (11:13)
[2022-09-01] MEDS: THIAMINE HCL 100 MG TAB PO SCH (11:13)
[2022-09-01] MEDS: PANTOPRAZOLE 40 MG/10 ML VIAL INJ IV SCH (11:13)
[2022-09-01] MEDS: NICOTINE 21MG/24 HR TOPICAL PATCH TD SCH (11:14)
[2022-09-01] MEDS ORDERED: CEPH-510 PO (11:41)
[2022-09-01] MEDS ORDERED: HYDR-4902 PO (11:41)
[2022-09-01] MEDS ORDERED: DOCU-94 PO (11:41)
[2022-09-01] MEDS ORDERED: SODIUM CHLORIDE 0.9% 500 ML IV ONE (11:45)
[2022-09-01] MEDS ORDERED: DOCUSATE SOD 100 MG CAP PO ONE (11:45)
[2022-09-01] MEDS ORDERED: METOCLOPRAMIDE HCL 5MG/ml INJ 2ml VIAL IV ONE (11:45)
[2022-09-01 13:00] VITALS: BP 102/65
[2022-09-01 16:50] VITALS: BP 92/56
[2022-09-01] MEDS: SENNA 8.6 MG TAB PO SCH (21:14)
[2022-09-01 22:00] VITALS: BP 105/67
[2022-09-02] MEDS: HYDROmorphone HCL 2 MG/ML VL/or syr IV PRN ×3 (02:34→12:15)
[2022-09-02 05:00] VITALS: BP 119/78
[2022-09-02] MEDS: GABAPENTIN 300 MG CAP PO SCH ×2 (05:34→16:00)
[2022-09-02] MEDS: LACTULOSE 20Gm/30ML SOLN PO PRN ×2 (06:10→12:23)
[2022-09-02 08:00] VITALS: BP 113/81
[2022-09-02 09:00] VITALS: BP 113/81
[2022-09-02] MEDS: PANTOPRAZOLE 40 MG/10 ML VIAL INJ IV SCH (09:07)
[2022-09-02] MEDS: NICOTINE 21MG/24 HR TOPICAL PATCH TD SCH (09:07)
[2022-09-02] MEDS: DOCUSATE SOD 100 MG CAP PO SCH (09:07)
[2022-09-02] MEDS: THIAMINE HCL 100 MG TAB PO SCH (09:08)
[2022-09-02] MEDS: FOLIC ACID 1 MG TAB PO SCH (09:08)
[2022-09-02] MEDS: SODIUM CHLORIDE 0.9% 1,000 ML IV SCH (12:16)
[2022-09-02 13:00] VITALS: BP 120/84
[2022-09-02] MEDS ORDERED: POLYETHYLENE GLYCOL 17 GM PWDR PO ONE (13:00)
[2022-09-02] MEDS ORDERED: METOCLOPRAMIDE HCL 5MG/ml INJ 2ml VIAL IV ONE (13:00)
[2022-09-02] MEDS ORDERED: BISACODYL 10 MG RECT SUPP PR ONE (13:00)
[2022-09-02] MEDS ORDERED: FLEET ENEMA(ADULT) 135 ML PR ONE (13:00)
[2022-09-02 16:42] VITALS: BP 126/78
[2022-09-02 17:00] VITALS: BP 126/78
[2022-09-03 13:19] LABS: Hepatitis C Antibody Negative (Negative)
== END 2022-09-02 17:06 | disposition home or self-care (01) | DRG 228 ==
LOC: ER 05:41 → OVERFLOW 12:38 → WEST WING 21:25
PROVIDERS: ADMIT Nurse Practitioner Family; ATTEND Nurse Practitioner Acute Care
PROC: 0YQ50ZZ Repair Right Inguinal Region, Open Approach (ICD-10-PCS; principal; 2022-08-31 11:56)
DX: K40.30 Unilateral inguinal hernia, with obstruction, without gangrene, not specified as recurrent (principal); E46 Unspecified protein-calorie malnutrition; F17.210 Nicotine dependence, cigarettes, uncomplicated; K21.9 Gastro-esophageal reflux disease without esophagitis; G62.9 Polyneuropathy, unspecified; K59.00 Constipation, unspecified; Z79.899 Other long term (current) drug therapy; Z68.25 Body mass index [BMI] 25.0-25.9, adult
CPT/HCPCS: 36415; 71045; 74176; 80053; 80307; 81001; 83605; 83690; 84484; 85025; 85610; 85730; 86803; 86850; 86900; 86901; 87040; 87340; C1781; C9113; G0378; J0690; J2001; J2250; J2405; J2704; J3490

== ENCOUNTER 2024-02-27 18:21 | Emergency (ER) | payer OTHER ==
[~2024-02-27] VITALS: Ht 182.9 cm; Wt 82.6 kg
[~2024-02-27 18:21] MED LIST changes: +CEPH-510 PO; +DOCU-94 PO; +FOLI-119 PO; -FOLI1TAB6 PO; +GABA-1250 PO; -GABA300C10 PO; +HYDR-4902 PO
[2024-02-27 18:55] LABS: Basophils # (auto) 0.1 10 ^3/uL (0-0.2); Basophils % (auto) 0.8 % (0.0-2.0); Eosinophils # (auto) 0.1 10 ^3/uL (0-0.8); Eosinophils % (auto) 1.7 % (0.0-7.0); Hemoglobin 17.3 g/dL (13.5-17.5); Lymphocytes # (auto) 1.6 10 ^3/uL (0.4-5.4); Lymphocytes % (auto) 20.5 % (10.0-50.0); Mean Corpuscular Hgb Conc. 33.9 g/dL (32.0-36.0); Mean Corpuscular Volume 91.4 fL (80.0-100.0); Monocytes # (auto) 0.9 10 ^3/uL (0-1.3); Monocytes % (auto) 10.6 % (0.0-12.0); Neutrophils # (auto) 5.3 10 ^3/uL (1.6-8.6); Neutrophils % (auto) 66.4 % (37.0-80.0); Nucleated Red Blood Cells % 0.1 %; Platelet Count (auto) 228 10^3/uL (140-450); Red Blood Cells 5.58 10^6/uL (4.5-5.90); Red Cell Distribution Width 13.9 % (11.8-14.3)
[2024-02-27 19:00] LABS: Chloride 108 mmol/L (98-107); Potassium 3.7 mmol/L (3.5-5.1); Sodium 140 mmol/L (136-145)
[2024-02-27 19:01] LABS: Anion Gap 6 (5-15); Calcium 9.6 mg/dL (8.7-10.4); Carbon Dioxide 26 mmol/L (20-31)
[2024-02-27 19:06] LABS: Blood Urea Nitrogen 10 mg/dL (9-23); Glucose 85 mg/dL (74-106)
[2024-02-27 19:23] LABS: Urine Bacteria None Seen /hpf (None Seen)
[2024-02-27 20:01] LABS: Urine Blood 1+ /uL (Negative); Urine Clarity Clear (Clear); Urine Color Yellow (Yellow); Urine Mucus FEW (None Seen); Urine Protein, UAD TRACE (Negative); Urine Specific Gravity 1.023 (1.001-1.035); Urine Urobilinogen 2 mg/dL (Negative); Urine WBC 1 /hpf (0 - 3)
[2024-02-27] MEDS ORDERED: HYDR-4902 PO (20:51)
[2024-02-27 21:05] VITALS: BP 120/81; PULSE 79; RESP 18; TEMP 97.8; O2SAT 97
== END 2024-02-27 21:16 | disposition home or self-care (01) ==
LOC: ER 18:21
DX: K40.90 Unilateral inguinal hernia, without obstruction or gangrene, not specified as recurrent (principal); N20.0 Calculus of kidney; F17.210 Nicotine dependence, cigarettes, uncomplicated; F12.10 Cannabis abuse, uncomplicated; F10.10 Alcohol abuse, uncomplicated; Z79.899 Other long term (current) drug therapy
CPT/HCPCS: 36415; 74176; 80048; 81001; 85025

== ENCOUNTER 2024-03-02 08:15 | Inpatient (IN) | payer OTHER ==
[~2024-03-02] VITALS: Ht 172.7 cm; Wt 81.0 kg
--- NOTE | 2024-03-02 08:46 | ED.PDOC ---
GI ASSESSMENT HPI Comments 48Y M with PMHx rt inguinal hernia repair 2022 presents to ED for chief complaint pelvic pain x1wk with nausea, vomiting, diarrhea, SOB, and dizziness. Pt denies chest pain. Pt states he has a lt inguinal hernia and feels that it is "dropping down to testicle". Pt was seen at [facility] ER on 02/27/2024 with dx lt inguinal hernia but was told to f/u with PCP. Pt has not seen PCP and symptoms have now worsened. Pt was also seen at [facility] in 08/2022 for dx rt inguinal hernia repair. No known allergies. Chief Complaint: Pelvic Pain Time Seen by MD: 08:37 Primary Care Provider: NONE Reviewed Notes: Medications, Allergies Allergies: Coded Allergies: NO KNOWN ALLERGIES (Unverified , 02/17/13) Home Meds Active Scripts Hydrocodone-Acetaminophen (Hydrocodone Bitartrate/AC 5-325 mg) 1 Tab Tab, 1 TAB PO Q6HP PRN for 5 Days, #20 TAB Prov:MIGUEL GONZALEZ MD 02/27/24 Cephalexin ( Keflex 500) 500 Mg Cap, 1 CAP PO QID for 3 Days, #15 CAP Prov:JAILENE SMITH [employer] 09/01/22 Docusate Sodium (Colace) 100 Mg Cap, 1 CAP PO BID, #30 CAP Prov:JAILENE SMITH [employer] 09/01/22 Gabapentin (Gabapentin) 300 Mg Cap, 1 CAP PO TID, #90 CAP 5 Refills Prov:BALDEV VENTURA MD 02/20/22 Pantoprazole Sodium Sesquihydr (Pantoprazole Sodium) 40 Mg Tab, 40 MG PO DAILY, #30 TAB Prov:BALDEV VENTURA MD 02/20/22 Chlordiazepoxide Hcl (Librium) 25 Mg Cp, 25 MG PO TID, #30 CAP Prov:BALDEV VENTURA MD 02/20/22 Folic Acid (Folic Acid) 1 Mg Tab, 1 MG PO DAILY, #30 TAB Prov:BALDEV VENTURA MD 02/20/22 Thiamine Hcl (Thiamine Hcl) 100 Mg Tab, 1 TAB PO DAILY, #30 TAB 3 Refills Prov:BALDEV VENTURA MD 02/20/22 Information Source: Patient Mode of Arrival: Ambulatory Timing: Days Duration: Since onset Quality: Aching Vomitus: Watery Stool: Watery Severity: Severe Recent: None Recent Hx of: None Pain Location: Suprapubic Modifying Factors: Nothing Associated sign and symptoms: Nausea, Vomiting, Diarrhea, Abdominal Pain Vital Signs Vital Signs Date Time Temp Pulse Resp B/P (MAP) Pulse Ox O2 Delivery O2 Flow Rate FiO2 03/02/24 13:09 98.7 60 18 144/82 (102) 99 98.7 03/02/24 08:53 Room Air 03/02/24 08:53 0 21 Physical Exam General: Awake, alert and oriented. No acute distress. Skin: Skin in warm, dry and intact without rashes or lesions. Appropriate color for ethnicity. Nailbeds pink with no cyanosis. HEENT: The head is normocephalic and atraumatic. Conjunctivae are clear without exudates or hemorrhage. Sclera is non-icteric. EOM are intact. No signs of nystagmus. Eyelids are normal in appearance without swelling or lesions. The external ear and ear canal are non-tender and without swelling. Oral mucosa is pink and moist Neck: The neck is supple with normal range of motion. No JVD. Cardiac: Heart rate and rhythm are normal. No murmurs, gallops, or rubs are auscultated. Respiratory: No signs of respiratory distress. Lung sounds are clear in all lobes bilaterally without rales, ronchi, or wheezes. Abdominal: Tender, right inguinal hernia, not reducible. No overlying skin changes or erythema. T Bowel sounds are present and normoactive in all four quadrants. Extremities: Upper and lower extremities are atraumatic in appearance without deformity or edema. Neurological: The patient is awake, alert and oriented to person, place, and time with normal speech. Speech is clear. There is no facial asymmetry. Psychiatric: Appropriate mood and affect. Good judgement and insight. No visual or auditory hallucinations. Review of Systems: REVIEW OF SYSTEMS: No fever, no chills, or fatigue HEENT: No sore throat, earache, or congestion. No neck pain. Cardiac: No chest pain. No palpitations. Lungs: No shortness of breath or cough. GI: Positive left lower quadrant/left inguinal pain. no vomiting, no diarrhea, no constipation, : No dysuria, frequency, or urgency. No hematuria. Musculoskeletal: No joint pain or swelling or edema. Skin: No rash or itching. Neuro: No headache, dizziness, weakness Past Medical History PAST MEDICAL HISTORY: Denies Surgical History: Hernia Repair Family History Family History: Reviewed,noncontributory to illness Social History Smoker: Cigarettes, Less Than 1 Pack/Day Alcohol: Heavy Drugs: Marijuana Lives In: Home Was a procedure done? Was a procedure done?: No GI differential Dx Differential Diagnosis: Hernia, Ischemic Bowel, Other X-Ray, Labs, Meds, VS Vital Signs Date Time Temp Pulse Resp B/P (MAP) Pulse Ox O2 Delivery O2 Flow Rate FiO2 03/02/24 13:09 98.7 60 18 144/82 (102) 99 98.7 03/02/24 11:09 98.2 60 16 144/80 (101) 98 98.2 03/02/24 09:28 75 20 145/82 03/02/24 08:58 75 18 142/89 03/02/24 08:53 76 20 95 Room Air 03/02/24 08:53 75 20 98 Room Air* 0 21 03/02/24 08:52 98.0 75 20 142/89 (106) 98 98.0 03/02/24 08:25 98.0 83 17 132/87 (102) 97 Lab Test 03/02/24 10:03 03/02/24 09:00 03/02/24 08:23 Range/Units Sodium Level 136 136-145 mmol/L Potassium Level 4.4 3.5-5.1 mmol/L Chloride Level 107 98-107 mmol/L Carbon Dioxide Level 25 20-31 mmol/L Anion Gap 4 L 5-15 Blood Urea Nitrogen 8 L 9-23 mg/dL Creatinine 0.62 L 0.700-1.30 mg/dL Glomerular Filtration Rate Calc 117 >90 mL/min BUN/Creatinine Ratio 12.9 10.0-20.0 Serum Glucose 87 74-106 mg/dL Calcium Level 9.7 8.7-10.4 mg/dL Total Bilirubin 0.6 0.2-1.0 mg/dL Aspartate Amino Transferase (AST) 22 13-40 U/L Alanine Aminotransferase (ALT) 15 7-40 U/L Alkaline Phosphatase 72 46-116 U/L Total Protein 7.3 5.7-8.2 g/dL Albumin 4.3 3.2-4.8 g/dL White Blood Count 8.9 4.4-10.8 10^3/uL Red Blood Count 5.54 4.5-5.90 10^6/uL Hemoglobin 17.6 H 13.5-17.5 g/dL Hematocrit 51.3 41.0-53.0 % Mean Corpuscular Volume 92.6 80.0-100.0 fL Mean Corpuscular Hemoglobin 31.8 28.0-32.0 pg Mean Corpuscular Hemoglobin Concent 34.4 32.0-36.0 g/dL Red Cell Distribution Width 13.6 11.8-14.3 % Platelet Count 231 140-450 10^3/uL Mean Platelet Volume 8.9 6.9-10.8 fL Neutrophils (%) (Auto) 75.5 37.0-80.0 % Lymphocytes (%) (Auto) 13.6 10.0-50.0 % Monocytes (%) (Auto) 8.5 0.0-12.0 % Eosinophils (%) (Auto) 2.0 0.0-7.0 % Basophils (%) (Auto) 0.4 0.0-2.0 % Neutrophils # (Auto) 6.7 1.6-8.6 10 ^3/uL Lymphocytes # (Auto) 1.2 0.4-5.4 10 ^3/uL Monocytes # (Auto) 0.8 0-1.3 10 ^3/uL Eosinophils # (Auto) 0.2 0-0.8 10 ^3/uL Basophils # (Auto) 0 0-0.2 10 ^3/uL Nucleated Red Blood Cells 0.0 % Lactic Acid Level 1.5 0.4-2.0 mmol/L Urine Color Yellow Yellow Urine Clarity Clear Clear Urine pH 6.0 5.0-9.0 Urine Specific [place] 1.019 1.001-1.035 Urine Protein Trace H Negative Urine Ketones Negative Negative Urine Blood Negative Negative /uL Urine Nitrite Negative Negative Urine Bilirubin Negative Negative Urine Urobilinogen Normal Negative mg/dL Urine Leukocyte Esterase Negative Negative /uL Urine RBC 1 0 - 3 /hpf Urine WBC 4 0 - 3 /hpf Urine Squamous Epithelial Cells Few <5 /hpf Urine Bacteria None seen None Seen /hpf Urine Mucus Few None Seen Urine Glucose Normal Normal mg/dL Current Medications Medications (Trade) Dose Ordered Sig/Bill Route Start Time Stop Time Status Last Admin Morphine Sulfate 2 mg ONCE ONCE IV 03/02/24 08:45 03/02/24 08:48 DC 03/02/24 08:58 Ondansetron HCl (Zofran) 4 mg ONCE ONCE IV 03/02/24 08:45 03/02/24 08:48 DC 03/02/24 08:58 Acetaminophen/ Hydrocodone Bitart ([place] 5/325MG Tab) 1 tab Q4HP PRN PO 03/02/24 13:30 03/02/24 13:56 [place] [id number] Ph: [phone] DIAGNOSTIC IMAGING Diagnostic Imaging Report : [id number] Signed PATIENT: SILVIA FUENTES I ACCT: [id number] UNIT: [id number] : 1975 LOC: ER ROOM / BED: / AGE / SEX: 48 / M ADM STATUS: REG ER SERVICE 0908 ORDERING PHYSICIAN: SANDRA DOMINGO MD PROCEDURE(s): ABPLC - CT ABD PELVIS W CON-ORAL & IV REASON: Pain, Left inguinal hernia ORDER NUMBER(s): [id number], ACCESSION NUMBER(s): [id number] Exam: CT CT ABD PELVIS W CON-ORAL IV History: Pain, Left inguinal hernia COMPARISON: CT CT AB PEL WITH IV CON ONLY on DOS: 08/25/22 Technique: Multidetector spiral CT of the abdomen and pelvis was performed from lung bases to pubic symphysis. Intravenous contrast was administered during this examination. Portal venous imaging was obtained. Axial, coronal and sagittal multiplanar reformats were performed by the technologist on a separate workstation. Radiation Dose : Abdomen/Pelvis: CTDIvol 8.39 mGy, DLP 533.73 mGy*cm. CONTRAST: Type of contrast: Omni 300 Contrast injected: 100 mL Findings: Lung Bases: No acute or significant lung base finding. Normal heart size. No pleural or pericardial effusion. Liver: The liver is normal in size. No focal lesions. Normal hepatic vascular enhancement. Gallbladder and biliary Tree: Unremarkable Spleen: Unremarkable Pancreas: The pancreas is normal in appearance without focal lesions or abnormal enhancement. Adrenal Glands: Unremarkable Kidneys: No hydronephrosis. Bladder: Unremarkable Bowel: The stomach is grossly normal in appearance. Small bowel and colon are normal in caliber and distribution. Normal appendix is visualized in the right lower quadrant without findings of appendicitis. Ascites: Absent Lymphadenopathy: No mesenteric, retroperitoneal or periportal lymphadenopathy. Abdominal wall and Mesentery: There is a fat and colon containing left inguinal hernia. Vasculature: The visualized abdominal aorta is normal in size and caliber. Abdominal and pelvic vessels demonstrate normal enhancement. Pelvic Organs: Unremarkable Musculoskeletal: Avascular necrosis of the left femoral head again noted IMPRESSION: 1. No acute abdominal or pelvic finding. Fat and colon containing left inguinal hernia. Avascular necrosis of the left femoral head. Radiation optimization: All CT scans at this facility use at least one of these dose optimization techniques: Automated exposure control mA and/or kV adjustment per patient size (includes targeted exams where dose is matched to clinical indication) or iterative reconstruction. HS:Y ATED BY: FENG VARGAS MD DICTATED DATE/TIME: 03/02/24 1140 SIGNED BY: FENG VARGAS MD SIGNED DATE/TIME: 03/02/24 1140 CC: Time of 1ST Reevaluation: 09:07 Reevaluation 1ST: Unchanged Patient Education/Counseling: Diagnosis, Treatment Family Education/Counseling: No Family Present Departure 1 Departure Time of Disposition: 15:14 Impression: Primary Impression: Left inguinal hernia Additional Impression: Avascular necrosis of left femoral head Disposition: ADMITTED INPATIENT Admit to: Med Surg Condition: Stable Comments 48-year-old male with severe pain in the left inguinal region. Palpable hernia which is not reducible, does not appear to be acutely incarcerated at this time on exam. CT abdomen and pelvis showed there is a hernia containing fat as well as avascular necrosis of the left femoral head. Patient admitted for further treatment, evaluation, monitoring and surgical consultation. Critical Care Note Critical Care Time?: No Stability Stability form required: No I personally scribed for SANDRA DOMINGO MD ([email or web address]) on 03/02/24 at 08:46. Electronically submitted by Ashley Masters ([employer] I personally scribed for SANDRA ODMINGO MD ([email or web address]) on 03/02/24 at 12:44. Electronically submitted by Ashley Masters ([employer] SANDRA DOMINGO MD Mar 02, 2024 08:46
[2024-03-02 08:48] LABS: Urine Bacteria None Seen /hpf (None Seen)
[2024-03-02 08:52] LABS: Urine Blood Negative /uL (Negative); Urine Clarity Clear (Clear); Urine Color Yellow (Yellow); Urine Mucus FEW (None Seen); Urine Protein, UAD TRACE (Negative); Urine Specific Gravity 1.019 (1.001-1.035); Urine Urobilinogen Normal (Negative); Urine WBC 4 /hpf (0 - 3)
[2024-03-02 08:53] VITALS: PULSE 75; RESP 20; O2SAT 98
[2024-03-02] MEDS: MORPHINE SULFATE INJ 2 MG/ml SYRG IV ONE (08:58)
[2024-03-02] MEDS: ONDANSETRON HCL 4 MG/2 ML VIAL IV ONE (08:58)
[2024-03-02] MEDS: IOHEXOL 300 MG/ML 100ML BOTTLE IJ ONE (09:02)
[2024-03-02 09:13] LABS: Eosinophils # (auto) 0.2 10 ^3/uL (0-0.8); Monocytes # (auto) 0.8 10 ^3/uL (0-1.3); Monocytes % (auto) 8.5 % (0.0-12.0); White Blood Cell 8.9 10^3/uL (4.4-10.8)
[2024-03-02 09:15] LABS: Basophils # (auto) 0 10 ^3/uL (0-0.2); Basophils % (auto) 0.4 % (0.0-2.0); Hematocrit 51.3 % (41.0-53.0); Hemoglobin 17.6 g/dL (13.5-17.5); Lymphocytes # (auto) 1.2 10 ^3/uL (0.4-5.4); Lymphocytes % (auto) 13.6 % (10.0-50.0); Mean Corpuscular Hemoglobin 31.8 pg (28.0-32.0); Mean Corpuscular Hgb Conc. 34.4 g/dL (32.0-36.0); Mean Corpuscular Volume 92.6 fL (80.0-100.0); Neutrophils # (auto) 6.7 10 ^3/uL (1.6-8.6); Neutrophils % (auto) 75.5 % (37.0-80.0); Platelet Count (auto) 231 10^3/uL (140-450); Red Blood Cells 5.54 10^6/uL (4.5-5.90); Red Cell Distribution Width 13.6 % (11.8-14.3)
[2024-03-02] MEDS: OMNIPAQUE 12mg/ml 500ml ORAL SOLUTION PO ONE (09:22)
[2024-03-02 11:14] LABS: Alanine Aminotransferase 15 U/L (7-40); Albumin 4.3 g/dL (3.2-4.8); Alkaline Phosphatase 72 U/L (46-116); Anion Gap 4 (5-15); Aspartate Aminotransferase 22 U/L (13-40); BUN/Creatinine Ratio 12.9 (10.0-20.0); Bilirubin, Total 0.6 mg/dL (0.2-1.0); Blood Urea Nitrogen 8 mg/dL (9-23); Calcium 9.7 mg/dL (8.7-10.4); Carbon Dioxide 25 mmol/L (20-31); Chloride 107 mmol/L (98-107); Glucose 87 mg/dL (74-106); Potassium 4.4 mmol/L (3.5-5.1); Sodium 136 mmol/L (136-145); Total Protein 7.3 g/dL (5.7-8.2)
--- NOTE | 2024-03-02 11:43 | DVH ---
Exam: CT CT ABD PELVIS W CON-ORAL IV History: Pain, Left inguinal hernia COMPARISON: CT CT AB PEL WITH IV CON ONLY on DOS: 08/25/22 Technique: Multidetector spiral CT of the abdomen and pelvis was performed from lung bases to pubic symphysis. Intravenous contrast was administered during this examination. Portal venous imaging was obtained. Axial, coronal and sagittal multiplanar reformats were performed by the technologist on a separate workstation. Radiation Dose : Abdomen/Pelvis: CTDIvol 8.39 mGy, DLP 533.73 mGy*cm. CONTRAST: Type of contrast: Omni 300 Contrast injected: 100 mL Findings: Lung Bases: No acute or significant lung base finding. Normal heart size. No pleural or pericardial effusion. Liver: The liver is normal in size. No focal lesions. Normal hepatic vascular enhancement. Gallbladder and biliary Tree: Unremarkable Spleen: Unremarkable Pancreas: The pancreas is normal in appearance without focal lesions or abnormal enhancement. Adrenal Glands: Unremarkable Kidneys: No hydronephrosis. Bladder: Unremarkable Bowel: The stomach is grossly normal in appearance. Small bowel and colon are normal in caliber and d istribution. Normal appendix is visualized in the right lower quadrant without findings of appendici tis. Ascites: Absent Lymphadenopathy: No mesenteric, retroperitoneal or periportal lymphadenopathy. Abdominal wall and Mesentery: There is a fat and colon containing left inguinal hernia. Vasculature: The visualized abdominal aorta is normal in size and caliber. Abdominal and pelvic vess els demonstrate normal enhancement. Pelvic Organs: Unremarkable Musculoskeletal: Avascular necrosis of the left femoral head again noted IMPRESSION: 1. No acute abdominal or pelvic finding. Fat and colon containing left inguinal hernia. Avascular nec rosis of the left femoral head. Radiation optimization: All CT scans at this facility use at least one of these dose optimization che hniques: Automated exposure control mA and/or kV adjustment per patient size (includes targeted exams where dose is matched to clinical indication) or iterative reconstruction. HS:Y
[2024-03-02] MEDS: SODIUM CHLORIDE 0.9% 1,000 ML IV SCH (13:30)
[2024-03-02] MEDS ORDERED: DOCUSATE SOD 100 MG CAP PO PRN (13:30)
[2024-03-02] MEDS ORDERED: ACETAMINOPHEN 325 MG TAB PO PRN (13:30)
--- NOTE | 2024-03-02 13:36 | DVHHP2 ---
History of Present Illness Reason for Visit: Pelvic pain History of Present Illness The patient is a 48-year-old male with past medical history of hernia status post hernia repair in 2022 presented to [facility] ED with complaint of pelvic pain for a proximally 1 week duration. Patient reports symptoms progressively get worse with nausea, vomiting, diarrhea, dizziness, shortness of breaths, getting worse today that prompted this visit. Patient was seen and evaluated in the ED, laboratory data shows WBC 8.9, platelets 231, sodium 136, potassium 4.4, BUN 8, creatinine 0.62, glucose 87, blood pressure 144/82, heart rate 75, temperature 98.7 F, O2 saturation 99% on room air. Patient was given IV morphine sulfate 2 mg x 1, please see medication orders section in the computer. On my assessment, patient denied chest pain, no headache, no dizziness, no diaphoresis, no shortness of breath, no abdominal pain at this moment, no nausea, no vomiting, no fever, no chills. Patient was admitted for further evaluation and medical management. Past Medical History Hernia Past Surgical History Hernia Repair Family History Reviewed, noncontributory to the management of this case. Past Social History The patient lives at home, smokes cigarettes less than 1 pack/day, drinks alcohol heavily, uses marijuana. Review of Systems Constitutional: No: Fever, Chills, Sweats, Weakness, Malaise, Other Eyes: No: Pain, Vision change, Conjunctivae inflammation, Eyelid inflammation, Other, Redness ENT: No: Ear pain, Ear discharge, Nose pain, Nose discharge, Nose congestion, Mouth pain, Mouth swelling, Throat pain, Throat swelling, Other Respiratory: No: Cough, Dry, Shortness of breath, SOB with excertion, Wheezing, Hemoptysis, Pleuritic Pain, Sputum, Wheezing, Other Cardiovascular: No: Chest Pain, Palpitations, Orthopnea, Paroxysmal Noc. Dyspnea, Edema, Lt Headedness, Other Gastrointestinal: Nausea, Vomiting, Abdominal Pain, Diarrhea; No: Constipation, Melena, Hematochezia, Other Genitourinary: No Dysuria, No Frequency, No Incontinence, No Hematuria, No Retention; Other (Pelvic pain) Musculoskeletal: No: other, neck pain, shoulder pain, arm pain, back pain, hand pain, leg pain, foot pain Skin: No: Rash, Lesions, Jaundice, Bruising, Other Neurological: No: Weakness, Numbness, Incoordination, Change in speech, Confusion, Seizures, Other Allergies: Coded Allergies: NO KNOWN ALLERGIES (Unverified , 02/17/13) Medications Current Medications Medications Dose Ordered Sig/Bill Route Start Time Stop Time Status Last Admin Dose Admin Sodium Chloride 1,000 ml @ 60 mls/hr [id number] IV 03/02/24 13:30 UNV Acetaminophen/ Hydrocodone Bitart 1 tab Q4HP PRN PO 03/02/24 13:30 UNV Ondansetron HCl 4 mg Q4HP PRN IV 03/02/24 13:30 UNV Docusate Sodium 100 mg BIDPRN PRN PO 03/02/24 13:30 UNV Acetaminophen 650 mg Q6HP PRN PO 03/02/24 13:30 UNV Morphine Sulfate 2 mg Q4HPRN PRN IV 03/02/24 13:30 UNV Pantoprazole Sodium 40 mg DAILY IV 03/03/24 10:00 UNV Exam Vital Signs Vital Signs Date Time Temp Pulse Resp B/P (MAP) Pulse Ox O2 Delivery O2 Flow Rate FiO2 03/02/24 13:09 98.7 60 18 144/82 (102) 99 98.7 03/02/24 08:53 Room Air 03/02/24 08:53 0 21 General Appearance: Alert, Oriented X3, Cooperative, No acute distress HEENT: Atraumatic, PERRLA, EOMI, Mucous membr. moist/pink Respiratory: Clear to auscultation, Normal air movement Cardiovascular: Regular rate, Normal S1, Normal S2, No murmurs Abdominal: Normal bowel sounds, Soft, No hepatospenomegaly, No masses, Other (Reports tenderness) Extremities: No clubbing, No cyanosis, No edema, Normal pulses, No tenderness/swelling Skin: No rashes, No breakdown, No significant lesion Neuro: Normal gait, Normal speech, Strength at 5/5 X4 ext, Normal tone, Sensation intact, Cranial nerves 3-12 NL, Reflexes 2+ Psych/Mental Status: Mental status NL, Mood NL Labs/Xrays Labs Test 03/02/24 10:03 03/02/24 09:00 03/02/24 08:23 Range/Units Sodium Level 136 136-145 mmol/L Potassium Level 4.4 3.5-5.1 mmol/L Chloride Level 107 98-107 mmol/L Carbon Dioxide Level 25 20-31 mmol/L Anion Gap 4 L 5-15 Blood Urea Nitrogen 8 L 9-23 mg/dL Creatinine 0.62 L 0.700-1.30 mg/dL Glomerular Filtration Rate Calc 117 >90 mL/min BUN/Creatinine Ratio 12.9 10.0-20.0 Serum Glucose 87 74-106 mg/dL Calcium Level 9.7 8.7-10.4 mg/dL Total Bilirubin 0.6 0.2-1.0 mg/dL Aspartate Amino Transferase (AST) 22 13-40 U/L Alanine Aminotransferase (ALT) 15 7-40 U/L Alkaline Phosphatase 72 46-116 U/L Total Protein 7.3 5.7-8.2 g/dL Albumin 4.3 3.2-4.8 g/dL White Blood Count 8.9 4.4-10.8 10^3/uL Red Blood Count 5.54 4.5-5.90 10^6/uL Hemoglobin 17.6 H 13.5-17.5 g/dL Hematocrit 51.3 41.0-53.0 % Mean Corpuscular Volume 92.6 80.0-100.0 fL Mean Corpuscular Hemoglobin 31.8 28.0-32.0 pg Mean Corpuscular Hemoglobin Concent 34.4 32.0-36.0 g/dL Red Cell Distribution Width 13.6 11.8-14.3 % Platelet Count 231 140-450 10^3/uL Mean Platelet Volume 8.9 6.9-10.8 fL Neutrophils (%) (Auto) 75.5 37.0-80.0 % Lymphocytes (%) (Auto) 13.6 10.0-50.0 % Monocytes (%) (Auto) 8.5 0.0-12.0 % Eosinophils (%) (Auto) 2.0 0.0-7.0 % Basophils (%) (Auto) 0.4 0.0-2.0 % Neutrophils # (Auto) 6.7 1.6-8.6 10 ^3/uL Lymphocytes # (Auto) 1.2 0.4-5.4 10 ^3/uL Monocytes # (Auto) 0.8 0-1.3 10 ^3/uL Eosinophils # (Auto) 0.2 0-0.8 10 ^3/uL Basophils # (Auto) 0 0-0.2 10 ^3/uL Nucleated Red Blood Cells 0.0 % Lactic Acid Level 1.5 0.4-2.0 mmol/L Urine Color Yellow Yellow Urine Clarity Clear Clear Urine pH 6.0 5.0-9.0 Urine Specific [place] 1.019 1.001-1.035 Urine Protein Trace H Negative Urine Ketones Negative Negative Urine Blood Negative Negative /uL Urine Nitrite Negative Negative Urine Bilirubin Negative Negative Urine Urobilinogen Normal Negative mg/dL Urine Leukocyte Esterase Negative Negative /uL Urine RBC 1 0 - 3 /hpf Urine WBC 4 0 - 3 /hpf Urine Squamous Epithelial Cells Few <5 /hpf Urine Bacteria None seen None Seen /hpf Urine Mucus Few None Seen Urine Glucose Normal Normal mg/dL PATIENT: SILVIA FUENTES I ACCT: [id number] UNIT: [id number] : 1975 LOC: ER ROOM / BED: / AGE / SEX: 48 / M ADM STATUS: REG ER SERVICE 0908 ORDERING PHYSICIAN: SANDRA DOMINGO MD PROCEDURE(s): ABPLC - CT ABD PELVIS W CON-ORAL & IV REASON: Pain, Left inguinal hernia ORDER NUMBER(s): [id number], ACCESSION NUMBER(s): [id number] Exam: CT CT ABD PELVIS W CON-ORAL IV History: Pain, Left inguinal hernia COMPARISON: CT CT AB PEL WITH IV CON ONLY on DOS: 08/25/22 Technique: Multidetector spiral CT of the abdomen and pelvis was performed from lung bases to pubic symphysis. Intravenous contrast was administered during this examination. Portal venous imaging was obtained. Axial, coronal and sagittal multiplanar reformats were performed by the technologist on a separate workstation. Radiation Dose : Abdomen/Pelvis: CTDIvol 8.39 mGy, DLP 533.73 mGy*cm. CONTRAST: Type of contrast: Omni 300 Contrast injected: 100 mL Findings: Lung Bases: No acute or significant lung base finding. Normal heart size. No pleural or pericardial effusion. Liver: The liver is normal in size. No focal lesions. Normal hepatic vascular enhancement. Gallbladder and biliary Tree: Unremarkable Spleen: Unremarkable Pancreas: The pancreas is normal in appearance without focal lesions or abnormal enhancement. Adrenal Glands: Unremarkable Kidneys: No hydronephrosis. Bladder: Unremarkable Bowel: The stomach is grossly normal in appearance. Small bowel and colon are normal in caliber and distribution. Normal appendix is visualized in the right lower quadrant without findings of appendicitis. Ascites: Absent Lymphadenopathy: No mesenteric, retroperitoneal or periportal lymphadenopathy. Abdominal wall and Mesentery: There is a fat and colon containing left inguinal hernia. Vasculature: The visualized abdominal aorta is normal in size and caliber. Abdominal and pelvic vessels demonstrate normal enhancement. Pelvic Organs: Unremarkable Musculoskeletal: Avascular necrosis of the left femoral head again noted IMPRESSION: 1. No acute abdominal or pelvic finding. Fat and colon containing left inguinal hernia. Avascular necrosis of the left femoral head. Assessment/Plan Assessment/Plan Pelvic pain Acute abdominal pain Nausea and vomiting Plan 1. Admit to med surge unit 2. Breathing treatment 3. Pain control management 4. Management of fluids and electrolytes 5. Consultation for hospitalist 6. Diagnostic tests abdomen/pelvis CT 7. DVT prophylaxis on SCDs 8. Repeat labs CBC, CMP in a.m. 9. Continue with current medical management 10. Treatment plan discussed with patient and RN. Patient verbalized understanding. Plan discussed with: Patient, Other (RN) My Orders Orders - SHARONDA BE DNP Procedure Category Date Status Time Allergies TY 03/02/24 In Process 13:24 Code Status CODE 03/02/24 Transmitted 13:24 Sodium Chloride 0.9% PHA 03/02/24 Logged 13:30 Oxygen Per Hour RT 03/02/24 Transmitted 13:24 Hydrocodone-Acet PHA 03/02/24 Logged 5/325mg Tab ([place] 13:30 Ondansetron Hcl PHA 03/02/24 Logged (Zofran) 13:30 Docusate Sodium PHA 03/02/24 Logged Capsule (Colace 13:30 Complete Blood Count LAB 03/03/24 Verified 04:00 Comprehensive LAB 03/03/24 Verified Metabolic Panel 04:00 Cardiac DIET 03/02/24 Transmitted Diet-2gna,Lofat,Lochol Lunch Condition: Serious TY 03/02/24 In Process 13:24 Acetaminophen Tablet PHA 03/02/24 Logged (Tylenol Tablet) 13:30 Bedrest With Bathroom TY 03/02/24 In Process Privileg 13:24 Morphine Sulfate PHA 03/02/24 Logged Injection 13:30 Sequential TY 03/02/24 In Process Compression Device Pantoprazole PHA 03/03/24 Logged (Protonix) 10:00 Problem List: (1) Pelvic pain (2) Acute abdominal pain (3) Nausea and vomiting Date of Service: Mar 02, 2024 Billing Provider: SHARONDA BE DNP Common Visit Codes: [id number] INP/OBS CARE (HIGH) SHARONDA BE DNP Mar 02, 2024 13:36
[2024-03-02] MEDS ORDERED: NITROGLYCERIN 0.4 MG SL TAB SL PRN (13:45)
[2024-03-02] MEDS: HYDROcodone-ACET 5/325MG TAB PO PRN (13:56)
[2024-03-02] MEDS: ONDANSETRON HCL 4 MG/2 ML VIAL IV PRN (15:36)
[2024-03-02] MEDS: MORPHINE SULFATE INJ 2 MG/ml SYRG IV PRN (15:37)
[2024-03-02 17:35] VITALS: BP 101/57; PULSE 52; RESP 16; TEMP 97.8; O2SAT 97
[2024-03-02 23:11] VITALS: PULSE 71; RESP 20; O2SAT 97
[2024-03-03] VITALS (7 sets, daily range): BP systolic 101–115; BP diastolic 62–81; PULSE 57–67; RESP 18–20; TEMP 97.5–98; O2SAT 94–98
[2024-03-03 02:57] LABS: Basophils # (auto) 0.1 10 ^3/uL (0-0.2); Eosinophils # (auto) 0.3 10 ^3/uL (0-0.8); Eosinophils % (auto) 3.3 % (0.0-7.0); Hematocrit 53.7 % (41.0-53.0); Lymphocytes # (auto) 2.2 10 ^3/uL (0.4-5.4); Lymphocytes % (auto) 21.4 % (10.0-50.0); Mean Corpuscular Hemoglobin 31.1 pg (28.0-32.0); Mean Corpuscular Hgb Conc. 33.5 g/dL (32.0-36.0); Mean Corpuscular Volume 92.8 fL (80.0-100.0); Monocytes # (auto) 1.1 10 ^3/uL (0-1.3); Monocytes % (auto) 10.8 % (0.0-12.0); Neutrophils # (auto) 6.5 10 ^3/uL (1.6-8.6); Neutrophils % (auto) 63.5 % (37.0-80.0); Nucleated Red Blood Cells % 0.3 %; Platelet Count (auto) 140 10^3/uL (140-450); Red Blood Cells 5.79 10^6/uL (4.5-5.90); Red Cell Distribution Width 13.9 % (11.8-14.3); White Blood Cell 10.2 10^3/uL (4.4-10.8)
[2024-03-03 07:19] LABS: Alanine Aminotransferase 13 U/L (7-40); Albumin 3.8 g/dL (3.2-4.8); Alkaline Phosphatase 63 U/L (46-116); Anion Gap 5 (5-15); Aspartate Aminotransferase 17 U/L (13-40); BUN/Creatinine Ratio 12.7 (10.0-20.0); Bilirubin, Total 0.4 mg/dL (0.2-1.0); Blood Urea Nitrogen 9 mg/dL (9-23); Calcium 9.3 mg/dL (8.7-10.4); Carbon Dioxide 25 mmol/L (20-31); Chloride 108 mmol/L (98-107); Glucose 90 mg/dL (74-106); Potassium 4.5 mmol/L (3.5-5.1); Sodium 138 mmol/L (136-145); Total Protein 6.5 g/dL (5.7-8.2)
[2024-03-03] MEDS: PANTOPRAZOLE 40 MG/10 ML VIAL INJ IV SCH (09:20)
[2024-03-03] MEDS: THIAMINE HCL 100 MG TAB PO SCH (09:21)
[2024-03-03] MEDS: FOLIC ACID 1 MG TAB PO SCH (09:21)
--- NOTE | 2024-03-03 13:49 | DVHPN2 ---
Subjective Patient continues to have pain rated a 4/10 to the left inguinal area Reviewed: Care Plan, H&P, Labs, Medications Changes from previous H/P or p: No Changes General: Per HPI Eyes: No Pain, No Vision change, No Conjunctivae inflammation, No Eyelid inflammation, No Other, No Redness ENT: No Ear pain, No Ear discharge, No Nose pain, No Nose discharge, No Nose congestion, No Mouth pain, No Mouth swelling, No Throat pain, No Throat swelling, No Other Cardiovascular: No Chest Pain, No Palpitations, No Orthopnea, No Paroxysmal Noc. Dyspnea, No Edema, No Lt Headedness, No Other Respiratory: No Cough, No Dry, No Shortness of breath, No SOB with excertion, No Wheezing, No Hemoptysis, No Pleuritic Pain, No Sputum, No Other Gastrointestinal: No Nausea, No Vomiting, No Abdominal Pain, No Diarrhea, No Constipation, No Melena, No Hematochezia, No Other Genitourinary: No Dysuria, No Frequency, No Incontinence, No Hematuria, No Retention; Other (Pelvic pain) Musculoskeletal: No other, No neck pain, No shoulder pain, No arm pain, No back pain, No hand pain, No leg pain, No foot pain Skin: No Rash, No Lesions, No Jaundice, No Bruising, No Other Objective Vitals Vital Signs Date Time Temp Pulse Resp B/P (MAP) Pulse Ox O2 Delivery O2 Flow Rate FiO2 03/03/24 10:00 60 18 110/62 03/03/24 09:04 97.6 96 97.6 03/03/24 09:04 Room Air* 0 21 Intake/Output Intake and Output 03/03/24 07:00 Intake Total 60 ml Balance 60 ml Intake IV Total 60 ml General Appearance: Alert, Oriented X3, Cooperative, mild distress HEENT: Atraumatic, PERRLA Lungs: Clear to auscultation, Normal air movement Cardiovascular: Normal S1, Normal S2 Abdomen: Normal bowel sounds, Other (Palpable left inguinal mass.) Genitourinary: No Apparent Abnormalities Musculoskeletal: Normal sensory function, Normal motor function Neuro: Normal gait, Normal speech Psych/Mental Status: Mental status NL, Mood NL Medications Current Medications Medications Dose Ordered Sig/Bill Route Start Time Stop Time Status Last Admin Dose Admin Sodium Chloride 1,000 ml @ 60 mls/hr [id number] IV 03/02/24 13:30 03/02/24 17:49 60 MLS/HR Acetaminophen/ Hydrocodone Bitart 1 tab Q4HP PRN PO 03/02/24 13:30 03/03/24 06:44 1 TAB Ondansetron HCl 4 mg Q4HP PRN IV 03/02/24 13:30 03/02/24 23:22 4 MG Docusate Sodium 100 mg BIDPRN PRN PO 03/02/24 13:30 Acetaminophen 650 mg Q6HP PRN PO 03/02/24 13:30 Morphine Sulfate 2 mg Q4HPRN PRN IV 03/02/24 13:30 03/03/24 09:22 2 MG Pantoprazole Sodium 40 mg DAILY IV 03/03/24 10:00 03/03/24 09:20 40 MG Nitroglycerin 0.4 mg Q5MINP PRN SL 03/02/24 13:45 Morphine Sulfate 2 mg Q30M PRN IV 03/02/24 13:45 Folic Acid 1 mg DAILY PO 03/03/24 10:00 03/03/24 09:21 1 MG Thiamine HCl 100 mg DAILY PO 03/03/24 10:00 03/03/24 09:21 100 MG Laboratory Results Laboratory Tests 03/03/24 02:45 03/03/24 06:31 Chemistry Test 03/03/24 06:31 Albumin 3.8 g/dL (3.2-4.8) Calcium Level 9.3 mg/dL (8.7-10.4) Total Protein 6.5 g/dL (5.7-8.2) LFT Test 03/03/24 06:31 Alanine Aminotransferase (ALT) 13 U/L (7-40) Alkaline Phosphatase 63 U/L (46-116) Aspartate Amino Transferase (AST) 17 U/L (13-40) Total Bilirubin 0.4 mg/dL (0.2-1.0) Urinalysis Test 03/02/24 08:23 Urine Color Yellow (Yellow) Urine Clarity Clear (Clear) Urine pH 6.0 (5.0-9.0) Urine Specific [place] 1.019 (1.001-1.035) Urine Protein Trace (Negative) H Urine Ketones Negative (Negative) Urine Blood Negative /uL (Negative) Urine Nitrite Negative (Negative) Urine Bilirubin Negative (Negative) Urine Urobilinogen Normal mg/dL (Negative) Urine Leukocyte Esterase Negative /uL (Negative) Urine RBC 1 /hpf (0 - 3) Urine WBC 4 /hpf (0 - 3) Urine Squamous Epithelial Cells Few /hpf (<5) Urine Bacteria None seen /hpf (None Seen) Urine Mucus Few (None Seen) Urine Glucose Normal mg/dL (Normal) Labs and/or images reviewed: Labs reviewed by me, Image(s) reviewed by me Assessment/Plan Assessment/Plan Impression: -left inguinal hernia, fat containing -history of right inguinal hernia repair -GERD -constipation Plan: -surgical consultation -stool softeners -stop IV fluids given patient was tolerating p.o. intake without any nausea or vomiting -preop diagnostic tests including chest x-ray, lab work Total time spent with patient discussing and formulating plan of care: 35 minutes. This medical document was created using an electronic medical record system with [employer] dictation system. Although this document has been carefully reviewed, there may still be some phonetic and typographical errors. These areas are purely typographical due to imperfections of the software programs, and do not reflect any compromise in the patient's medical care. Plan discussed with: Patient, Other (RN) Date of Service: Mar 03, 2024 Billing Provider: JAILENE SMITH NP Common Visit Codes: [id number] INP/OBS CARE(HIGH) JAILENE SMITH NP Mar 03, 2024 13:49
[2024-03-03 15:36] LABS: INR 1.04 (0.9-1.15); Partial Thromboplastin Time 28.4 SEC (24.5-34.5)
--- NOTE | 2024-03-03 16:02 | DVH ---
CHEST RADIOGRAPH Indication:pre op Technique: Single frontal view of the chest was obtained Comparison: XY CHEST PORTABLE on DOS: 08/31/22, CHEST PORTABLE on DOS: 02/18/22, CXRP on DOS: 02/18/22 FINDINGS: Lines and Tubes: None Lungs: Redemonstration of left apical opacification with deviation of the trachea to the left. Bilate ral lower lung zone interstitial opacities. Pleura: No effusion. No pneumothorax. Cardiomediastinal contours: Unremarkable Bones: No acute osseous abnormality. IMPRESSION: Redemonstration of left apical scarring with leftward deviation of the trachea. Bilateral lower lung zone interstitial prominence which may be from atelectasis /scarring.
[2024-03-03] MEDS: DOCUSATE SOD 100 MG CAP PO SCH (21:11)
[2024-03-04 05:00] VITALS: BP 115/80; PULSE 99; RESP 20; TEMP 98.1; O2SAT 97
[2024-03-04 08:00] VITALS: PULSE 71; RESP 20; O2SAT 95
[2024-03-04 08:42] VITALS: BP 127/77; PULSE 71; RESP 20; TEMP 98.2; O2SAT 95
--- NOTE | 2024-03-04 09:56 | DVHPN2 ---
Subjective Patient continues to have pain rated a 4/10 to the left inguinal area Reviewed: Care Plan, H&P, Labs, Medications Changes from previous H/P or p: No Changes General: Per HPI Eyes: No Pain, No Vision change, No Conjunctivae inflammation, No Eyelid inflammation, No Other, No Redness ENT: No Ear pain, No Ear discharge, No Nose pain, No Nose discharge, No Nose congestion, No Mouth pain, No Mouth swelling, No Throat pain, No Throat swelling, No Other Cardiovascular: No Chest Pain, No Palpitations, No Orthopnea, No Paroxysmal Noc. Dyspnea, No Edema, No Lt Headedness, No Other Respiratory: No Cough, No Dry, No Shortness of breath, No SOB with excertion, No Wheezing, No Hemoptysis, No Pleuritic Pain, No Sputum, No Other Gastrointestinal: No Nausea, No Vomiting, No Abdominal Pain, No Diarrhea, No Constipation, No Melena, No Hematochezia, No Other Genitourinary: No Dysuria, No Frequency, No Incontinence, No Hematuria, No Retention; Other (Pelvic pain) Musculoskeletal: No other, No neck pain, No shoulder pain, No arm pain, No back pain, No hand pain, No leg pain, No foot pain Skin: No Rash, No Lesions, No Jaundice, No Bruising, No Other Objective Vitals Vital Signs Date Time Temp Pulse Resp B/P (MAP) Pulse Ox O2 Delivery O2 Flow Rate FiO2 03/04/24 08:42 98.2 71 20 127/77 (94) 95 98.2 03/03/24 20:00 Room Air* 0 21 Intake/Output Intake and Output 03/04/24 07:00 Intake Total 3080 ml Balance 3080 ml Intake Oral 2780 ml IV Total 300 ml # Voids 6 General Appearance: Alert, Oriented X3, Cooperative, mild distress HEENT: Atraumatic, PERRLA Lungs: Clear to auscultation, Normal air movement Cardiovascular: Normal S1, Normal S2 Abdomen: Normal bowel sounds, Other (Palpable left inguinal mass.) Genitourinary: No Apparent Abnormalities Musculoskeletal: Normal sensory function, Normal motor function Neuro: Normal gait, Normal speech Psych/Mental Status: Mental status NL, Mood NL Medications Current Medications Medications Dose Ordered Sig/Bill Route Start Time Stop Time Status Last Admin Dose Admin Acetaminophen/ Hydrocodone Bitart 1 tab Q4HP PRN PO 03/02/24 13:30 03/03/24 19:33 1 TAB Ondansetron HCl 4 mg Q4HP PRN IV 03/02/24 13:30 03/02/24 23:22 4 MG Acetaminophen 650 mg Q6HP PRN PO 03/02/24 13:30 Morphine Sulfate 2 mg Q4HPRN PRN IV 03/02/24 13:30 03/04/24 04:53 2 MG Pantoprazole Sodium 40 mg DAILY IV 03/03/24 10:00 03/03/24 09:20 40 MG Nitroglycerin 0.4 mg Q5MINP PRN SL 03/02/24 13:45 Morphine Sulfate 2 mg Q30M PRN IV 03/02/24 13:45 Folic Acid 1 mg DAILY PO 03/03/24 10:00 03/03/24 09:21 1 MG Thiamine HCl 100 mg DAILY PO 03/03/24 10:00 03/03/24 09:21 100 MG Docusate Sodium 100 mg BID PO 03/03/24 22:00 03/03/24 21:11 100 MG Laboratory Results Laboratory Tests 03/03/24 02:45 03/03/24 06:31 Coagulation Test 03/03/24 14:26 Prothrombin Time 11.0 sec (9.3-11.8) Prothrombin Time INR 1.04 (0.9-1.15) Activated Partial Thromboplast Time 28.4 SEC (24.5-34.5) Urinalysis Test 03/02/24 08:23 Urine Color Yellow (Yellow) Urine Clarity Clear (Clear) Urine pH 6.0 (5.0-9.0) Urine Specific [place] 1.019 (1.001-1.035) Urine Protein Trace (Negative) H Urine Ketones Negative (Negative) Urine Blood Negative /uL (Negative) Urine Nitrite Negative (Negative) Urine Bilirubin Negative (Negative) Urine Urobilinogen Normal mg/dL (Negative) Urine Leukocyte Esterase Negative /uL (Negative) Urine RBC 1 /hpf (0 - 3) Urine WBC 4 /hpf (0 - 3) Urine Squamous Epithelial Cells Few /hpf (<5) Urine Bacteria None seen /hpf (None Seen) Urine Mucus Few (None Seen) Urine Glucose Normal mg/dL (Normal) Labs and/or images reviewed: Labs reviewed by me, Image(s) reviewed by me Assessment/Plan Assessment/Plan Impression: -left inguinal hernia, fat containing -history of right inguinal hernia repair -GERD -constipation Plan: -surgical consultation : Discussed case with Dr. Morales. Patient made NPO with possible surgery this afternoon. -pain management: Patient made NPO, morphine for breakthrough pain. -stool softeners -start LR -repeat labs in a.m. Total time spent with patient discussing and formulating plan of care: 35 minutes. This medical document was created using an electronic medical record system with [employer] dictation system. Although this document has been carefully reviewed, there may still be some phonetic and typographical errors. These areas are purely typographical due to imperfections of the software programs, and do not reflect any compromise in the patient's medical care. Plan discussed with: Patient, Other (RN. Surgeon.) My Orders Orders - JAILENE SMITH NP Procedure Category Date Status Time Docusate Sodium PHA 03/03/24 In Process Capsule (Colace 22:00 * Surgical Consult CONS 03/03/24 Transmitted Chest Xray 1 View XY 03/03/24 Resulted 13:43 Npo (Nothing By DIET 03/04/24 Verified Mouth) Diet Lunch Morphine Sulfate PHA 03/04/24 Verified Injection 10:00 Lactated Ringers Lr PHA 03/04/24 Verified 10:00 Date of Service: Mar 04, 2024 Billing Provider: JAILENE SMITH NP Common Visit Codes: [id number] INP/OBS CARE(HIGH) JAILENE SMITH NP Mar 04, 2024 09:56
[2024-03-04] MEDS: LACTATED RINGER'S 1,000 ML IV SCH (10:25)
[2024-03-04] MEDS: MORPHINE SULFATE INJ 2 MG/ml SYRG IV PRN (10:34)
--- NOTE | 2024-03-04 10:58 | DVHINCON2 ---
Date of service: Mar 04, 2024 History of Present Illness 48-year-old male with a history of right inguinal hernia repair with mesh in the past now complaining of left inguinal painful bulging. Patient denies any fevers, chills, nausea or vomiting. Past Medical History None Past Surgical History Right inguinal hernia repair Family History: Patient reports no known family medical history. Family History Noncontributory Social History Smokes one pack a day. Also smokes marijuana. Also drinks heavily. Denies any IV drug use. Allergies: Coded Allergies: NO KNOWN ALLERGIES (Unverified , 02/17/13) Home Meds Active Scripts Hydrocodone-Acetaminophen (Hydrocodone Bitartrate/AC 5-325 mg) 1 Tab Tab, 1 TAB PO Q6HP PRN for 5 Days, #20 TAB Prov:MIGUEL GONZALEZ MD 02/27/24 Cephalexin ( Keflex 500) 500 Mg Cap, 1 CAP PO QID for 3 Days, #15 CAP Prov:JAILENE SMITH NP 09/01/22 Docusate Sodium (Colace) 100 Mg Cap, 1 CAP PO BID, #30 CAP Prov:JAILENE SMITH ENERGY PROFESSIONAL 09/01/22 Gabapentin (Gabapentin) 300 Mg Cap, 1 CAP PO TID, #90 CAP 5 Refills Prov:BALDEV VENTURA MD 02/20/22 Pantoprazole Sodium Sesquihydr (Pantoprazole Sodium) 40 Mg Tab, 40 MG PO DAILY, #30 TAB Prov:BALDEV VENTURA MD 02/20/22 Chlordiazepoxide Hcl (Librium) 25 Mg Cp, 25 MG PO TID, #30 CAP Prov:BALDEV VENTURA MD 02/20/22 Folic Acid (Folic Acid) 1 Mg Tab, 1 MG PO DAILY, #30 TAB Prov:BALDEV VENTURA MD 02/20/22 Thiamine Hcl (Thiamine Hcl) 100 Mg Tab, 1 TAB PO DAILY, #30 TAB 3 Refills Prov:BALDEV VENTURA MD 02/20/22 Current Medications Current Medications Medications (Trade) Dose Ordered Sig/Bill Route PRN Reason Start Time Stop Time Status Last Admin Docusate Sodium (Colace Capsule) 100 mg BID PO 03/03/24 22:00 03/03/24 21:11 Morphine Sulfate 1 mg Q4HP PRN IV SEVERE PAIN (7-10 PAIN SCALE) 10/30/24 10:00 03/04/24 10:34 Lactated Ringer's 1,000 ml @ 75 mls/hr [id number] IV 03/04/24 10:00 03/04/24 10:25 Vital Signs Vital Signs Date Time Temp Pulse Resp B/P (MAP) Pulse Ox O2 Delivery O2 Flow Rate FiO2 03/04/24 10:34 71 20 127/77 03/04/24 08:42 98.2 95 98.2 03/03/24 20:00 Room Air* 0 21 Physical Exam GEN: Age-appropriate male in no acute distress. Alert. HEENT: Normocephalic atraumatic. Moist mucous membranes. Anicteric sclerae. CV: RRR Respiratory: Coarse breath sounds ABD: Soft. Nontender nondistended. There is a reducible large left inguinal hernia with minimal tenderness to palpation. CT of the abdomen and pelvis: Large left inguinal hernia containing fat and colon. Labs/Diagnostic Data Labs Test 03/03/24 14:26 03/03/24 06:31 03/03/24 02:45 03/02/24 09:00 Range/Units Prothrombin Time 11.0 9.3-11.8 sec Prothrombin Time INR 1.04 0.9-1.15 Activated Partial Thromboplast Time 28.4 24.5-34.5 SEC Sodium Level 138 136-145 mmol/L Potassium Level 4.5 3.5-5.1 mmol/L Chloride Level 108 H 98-107 mmol/L Carbon Dioxide Level 25 20-31 mmol/L Anion Gap 5 5-15 Blood Urea Nitrogen 9 9-23 mg/dL Creatinine 0.71 0.700-1.30 mg/dL Glomerular Filtration Rate Calc 112 >90 mL/min BUN/Creatinine Ratio 12.7 10.0-20.0 Serum Glucose 90 74-106 mg/dL Calcium Level 9.3 8.7-10.4 mg/dL Total Bilirubin 0.4 0.2-1.0 mg/dL Aspartate Amino Transferase (AST) 17 13-40 U/L Alanine Aminotransferase (ALT) 13 7-40 U/L Alkaline Phosphatase 63 46-116 U/L Total Protein 6.5 5.7-8.2 g/dL Albumin 3.8 3.2-4.8 g/dL White Blood Count 10.2 4.4-10.8 10^3/uL Red Blood Count 5.79 4.5-5.90 10^6/uL Hemoglobin 18.0 H 13.5-17.5 g/dL Hematocrit 53.7 H 41.0-53.0 % Mean Corpuscular Volume 92.8 80.0-100.0 fL Mean Corpuscular Hemoglobin 31.1 28.0-32.0 pg Mean Corpuscular Hemoglobin Concent 33.5 32.0-36.0 g/dL Red Cell Distribution Width 13.9 11.8-14.3 % Platelet Count 140 140-450 10^3/uL Mean Platelet Volume 9.0 6.9-10.8 fL Neutrophils (%) (Auto) 63.5 37.0-80.0 % Lymphocytes (%) (Auto) 21.4 10.0-50.0 % Monocytes (%) (Auto) 10.8 0.0-12.0 % Eosinophils (%) (Auto) 3.3 0.0-7.0 % Basophils (%) (Auto) 1.0 0.0-2.0 % Neutrophils # (Auto) 6.5 1.6-8.6 10 ^3/uL Lymphocytes # (Auto) 2.2 0.4-5.4 10 ^3/uL Monocytes # (Auto) 1.1 0-1.3 10 ^3/uL Eosinophils # (Auto) 0.3 0-0.8 10 ^3/uL Basophils # (Auto) 0.1 0-0.2 10 ^3/uL Nucleated Red Blood Cells 0.3 % Lactic Acid Level 1.5 0.4-2.0 mmol/L Test 03/02/24 08:23 Range/Units Urine Color Yellow Yellow Urine Clarity Clear Clear Urine pH 6.0 5.0-9.0 Urine Specific [place] 1.019 1.001-1.035 Urine Protein Trace H Negative Urine Ketones Negative Negative Urine Blood Negative Negative /uL Urine Nitrite Negative Negative Urine Bilirubin Negative Negative Urine Urobilinogen Normal Negative mg/dL Urine Leukocyte Esterase Negative Negative /uL Urine RBC 1 0 - 3 /hpf Urine WBC 4 0 - 3 /hpf Urine Squamous Epithelial Cells Few <5 /hpf Urine Bacteria None seen None Seen /hpf Urine Mucus Few None Seen Urine Glucose Normal Normal mg/dL Assessment 1. Large left inguinal hernia. Plan/Recommendation 1. Left inguinal hernia repair with mesh. Informed consent: The surgery and its risks including but not limited to infection, bleeding requiring possible blood transfusion with the risk of hepatitis or HIV infection, possible hernia recurrence, possible postoperative neuralgia, possible perioperative [place] or stroke were explained to the patient. All questions were answered to his satisfaction. He expressed verbal understanding and wished to proceed with the surgery. Plan discussed with: Patient VEGA STARKS MD Mar 04, 2024 10:58
[2024-03-04 17:03] VITALS: BP 104/63; PULSE 62; RESP 20; TEMP 98.1; O2SAT 96
[2024-03-04 20:00] VITALS: PULSE 62; RESP 20; O2SAT 98
[2024-03-04 21:30] VITALS: BP 110/78; PULSE 82; RESP 20; TEMP 98.4; O2SAT 98
[2024-03-05 05:00] VITALS: BP 101/69; PULSE 57; RESP 18; TEMP 97.6; O2SAT 98
[2024-03-05 06:56] LABS: Basophils # (auto) 0.1 10 ^3/uL (0-0.2); Eosinophils # (auto) 0.2 10 ^3/uL (0-0.8); Hemoglobin 17.9 g/dL (13.5-17.5); Neutrophils # (auto) 4.1 10 ^3/uL (1.6-8.6); Nucleated Red Blood Cells % 0.1 %; Red Cell Distribution Width 13.6 % (11.8-14.3); White Blood Cell 7.3 10^3/uL (4.4-10.8)
[2024-03-05 07:00] LABS: Basophils % (auto) 0.7 % (0.0-2.0); Eosinophils % (auto) 3.4 % (0.0-7.0); Lymphocytes # (auto) 2.1 10 ^3/uL (0.4-5.4); Lymphocytes % (auto) 28.2 % (10.0-50.0); Mean Corpuscular Hemoglobin 31.1 pg (28.0-32.0); Mean Corpuscular Hgb Conc. 33.7 g/dL (32.0-36.0); Mean Corpuscular Volume 92.3 fL (80.0-100.0); Monocytes # (auto) 0.9 10 ^3/uL (0-1.3); Monocytes % (auto) 11.8 % (0.0-12.0); Neutrophils % (auto) 55.9 % (37.0-80.0); Platelet Count (auto) 228 10^3/uL (140-450); Red Blood Cells 5.75 10^6/uL (4.5-5.90)
[2024-03-05] MEDS ORDERED: ceFAZolin 2 GM/D5W100ml 100 ML IV ONE (07:06)
[2024-03-05] MEDS ORDERED: HYDROmorphone HCL 2 MG/ML VL/or syr ONE (07:13)
[2024-03-05] MEDS ORDERED: fentaNYL CITRATE 100 MCG/2 ML VL ONE (07:13)
[2024-03-05] MEDS ORDERED: MIDAZOLAM HCL 2MG/2ML 2ml VIAL (1mg/ml) ONE (07:13)
[2024-03-05] MEDS ORDERED: GLYCOPYRROLATE 0.2 MG/ML 1ML VIAL ONE (07:14)
[2024-03-05] MEDS ORDERED: LIDOCAINE 2% (LOCAL ANESTH.) PF 5ml SDV ONE (07:14)
[2024-03-05] MEDS ORDERED: DexAMETHasone SOD PHOS 10MG/1ML VIAL INJ ONE (07:14)
[2024-03-05] MEDS ORDERED: ONDANSETRON HCL 4 MG/2 ML VIAL ONE (07:14)
[2024-03-05] MEDS ORDERED: ePHEDrine SULFATE 50 MG/ML AMP ONE (07:14)
[2024-03-05] MEDS ORDERED: KETOROLAC TROMETH 30 MG/ML 1ML VIAL ONE (07:14)
[2024-03-05] MEDS ORDERED: ROCURONIUM 10MG/ML 10ML VIAL IV ONE (07:14)
[2024-03-05 07:15] LABS: Anion Gap 3 (5-15); Calcium 9.6 mg/dL (8.7-10.4); Carbon Dioxide 29 mmol/L (20-31); Chloride 107 mmol/L (98-107); Potassium 4.6 mmol/L (3.5-5.1); Sodium 139 mmol/L (136-145)
[2024-03-05 07:21] LABS: BUN/Creatinine Ratio 13.5 (10.0-20.0); Blood Urea Nitrogen 10 mg/dL (9-23); Glucose 89 mg/dL (74-106)
[2024-03-05] MEDS: LIDOCAINE W/ EPINEPHRINE 1% 20ML VIAL ONE (07:42)
[2024-03-05] MEDS ORDERED: KETAMINE 50mg/ML 1ml syringe ONE (07:47)
[2024-03-05] MEDS: ceFAZolin 1GM VL ONE (07:50)
[2024-03-05 08:37] VITALS: RESP 23; O2SAT 99
[2024-03-05] MEDS ORDERED: HYDROmorphone HCL 2 MG/ML VL/or syr IV PRN (08:45)
[2024-03-05] MEDS ORDERED: ONDANSETRON HCL 4 MG/2 ML VIAL IV ONE (08:45)
[2024-03-05 09:00] VITALS: BP 116/83; PULSE 71; RESP 18; TEMP 95.8; O2SAT 97
--- NOTE | 2024-03-05 09:11 | DVHOP2 ---
Operative Report - 2 Report Details Date: 03/05/24 Preop Diagnosis: Reducible left inguinal hernia Postop Diagnosis: Same Surgeon: Harman Morales MD Paleontological Helper: None Anesthesiologist: Dr. Alva Anesthesia: General, Local Implant: PHSE mesh Consent: The patient was informed of the risks and benefits of the procedure. These include but are not limited to complications of anesthesia, postoperative infection, incomplete relief of symptoms, recurrence of symptoms, damage to blood vessels, nerves and tendons, deep venous thrombosis, pulmonary embolism and possible need for repeat surgery in the future. Complications: None Estimated Blood Loss: 10 mL Fluids: 2 L Name of Procedure Performed Left inguinal hernia repair with mesh Procedure Details Procedure Details: After induction of general anesthesia, patient's left inguinal region was prepped and draped in standard surgical fashion. Approximately 15 mL of 1% lidocaine with epinephrine was used as a local anesthesia. An oblique incision was made in the left inguinal region and this incision was taken through the soft tissue the inferior superficial epigastric vessels were cauterized and divided without complication. Incision extended down to the external oblique fascia which was cleared anteriorly and a small incision was made in the records assistant al oblique fascia. This incision was then extended along the direction of its fibers towards the external ring revealing the cord structures and the ilioinguinal nerve. The ilioinguinal nerve was gently dissected off the cord structures and retracted out of the surgical field. Patient had a big direct component and the cord structures were isolated using a [place] drain. There was no indirect hernia sac identified. Vas deferens was identified and preserved. The direct hernia sac was then opened revealing the preperitoneal fatty tissue. A PHS mesh was used for the repair. Was 1st soaked in Ancef irrigation in the underlay portion was then placed through the opening into the preperitoneal space. Hernia sac edges consisting of the transversalis fascia and the components were then reapproximated using interrupted 2-0 Vicryl sutures. Slip was made on the onlay portion of the mesh to accommodate for the cord structures and this was wrapped around the cord structures and tucked underneath the external oblique fascia laterally. A single 2-0 Vicryl suture was used to secure the medial portion of the onlay portion of the mesh to the pubic tubercle. Surgical site was then irrigated with Ancef irrigation and the ilioinguinal nerve was placed back into its usual position. External oblique fascia was then closed over the repair using running 2-0 Vicryl sutures. Mario's fascia was reapproximated using interrupted 2-0 Vicryl sutures. Skin incision was then closed using lillian. Surgical sites were cleaned and dried and dressings were applied. Sponge, needle, instrument count at the end of the case were reported to be correct by the nursing staff. The patient tolerated procedure well and was awake, extubated and transferred to recovery in stable condition. Specimen: Direct hernia sac Condition Stable Disposition Still a Patient HARMAN MORALES MD Mar 05, 2024 09:11
[2024-03-05] MEDS: MORPHINE SULFATE INJ 2 MG/ml SYRG IV PRN (11:11)
[2024-03-05] MEDS: LACTULOSE 20Gm/30ML SOLN PO PRN (11:50)
[2024-03-05 13:00] VITALS: BP 104/64; PULSE 62; RESP 20; TEMP 96.8; O2SAT 97
[2024-03-05] MEDS ORDERED: DOCU-94 PO (13:19)
[2024-03-05] MEDS ORDERED: IBUP-1455 PO (13:19)
[2024-03-05] MEDS ORDERED: CEPH500C PO (13:19)
--- NOTE | 2024-03-05 13:23 | DVHDS2 ---
Discharge Summary Date of Admission Mar 02, 2024 at 13:35 Date of Discharge: Mar 05, 2024 Admitting Diagnosis Pelvic pain Labs/Diagnostic Data: Laboratory Results Test 03/05/24 06:23 03/03/24 14:26 03/03/24 06:31 03/02/24 09:00 White Blood Count 7.3 10^3/uL (4.4-10.8) Red Blood Count 5.75 10^6/uL (4.5-5.90) Hemoglobin 17.9 g/dL (13.5-17.5) Hematocrit 53.0 % (41.0-53.0) Mean Corpuscular Volume 92.3 fL (80.0-100.0) Mean Corpuscular Hemoglobin 31.1 pg (28.0-32.0) Mean Corpuscular Hemoglobin Concent 33.7 g/dL (32.0-36.0) Red Cell Distribution Width 13.6 % (11.8-14.3) Platelet Count 228 10^3/uL (140-450) Mean Platelet Volume 9.1 fL (6.9-10.8) Neutrophils (%) (Auto) 55.9 % (37.0-80.0) Lymphocytes (%) (Auto) 28.2 % (10.0-50.0) Monocytes (%) (Auto) 11.8 % (0.0-12.0) Eosinophils (%) (Auto) 3.4 % (0.0-7.0) Basophils (%) (Auto) 0.7 % (0.0-2.0) Neutrophils # (Auto) 4.1 10 ^3/uL (1.6-8.6) Lymphocytes # (Auto) 2.1 10 ^3/uL (0.4-5.4) Monocytes # (Auto) 0.9 10 ^3/uL (0-1.3) Eosinophils # (Auto) 0.2 10 ^3/uL (0-0.8) Basophils # (Auto) 0.1 10 ^3/uL (0-0.2) Nucleated Red Blood Cells 0.1 % Sodium Level 139 mmol/L (136-145) Potassium Level 4.6 mmol/L (3.5-5.1) Chloride Level 107 mmol/L (98-107) Carbon Dioxide Level 29 mmol/L (20-31) Anion Gap 3 (5-15) Blood Urea Nitrogen 10 mg/dL (9-23) Creatinine 0.74 mg/dL (0.700-1.30) Glomerular Filtration Rate Calc 111 mL/min (>90) BUN/Creatinine Ratio 13.5 (10.0-20.0) Serum Glucose 89 mg/dL (74-106) Calcium Level 9.6 mg/dL (8.7-10.4) Prothrombin Time 11.0 sec (9.3-11.8) Prothrombin Time INR 1.04 (0.9-1.15) Activated Partial Thromboplast Time 28.4 SEC (24.5-34.5) Total Bilirubin 0.4 mg/dL (0.2-1.0) Aspartate Amino Transferase (AST) 17 U/L (13-40) Alanine Aminotransferase (ALT) 13 U/L (7-40) Alkaline Phosphatase 63 U/L (46-116) Total Protein 6.5 g/dL (5.7-8.2) Albumin 3.8 g/dL (3.2-4.8) Lactic Acid Level 1.5 mmol/L (0.4-2.0) Test 03/02/24 08:23 Urine Color Yellow (Yellow) Urine Clarity Clear (Clear) Urine pH 6.0 (5.0-9.0) Urine Specific Prole 1.019 (1.001-1.035) Urine Protein Trace (Negative) Urine Ketones Negative (Negative) Urine Blood Negative /uL (Negative) Urine Nitrite Negative (Negative) Urine Bilirubin Negative (Negative) Urine Urobilinogen Normal mg/dL (Negative) Urine Leukocyte Esterase Negative /uL (Negative) Urine RBC 1 /hpf (0 - 3) Urine WBC 4 /hpf (0 - 3) Urine Squamous Epithelial Cells Few /hpf (<5) Urine Bacteria None seen /hpf (None Seen) Urine Mucus Few (None Seen) Urine Glucose Normal mg/dL (Normal) Other Laboratory Tests 03/05/24 06:23 Brief Hx & Hospital Course: History of Present Illness The patient is a 48-year-old male with past medical history of hernia status post hernia repair in 2022 presented to [facility] ED with complaint of pelvic pain for a proximally 1 week duration. Patient reports symptoms progressively get worse with nausea, vomiting, diarrhea, dizziness, shortness of breaths, getting worse today that prompted this visit. Patient was seen and evaluated in the ED, laboratory data shows WBC 8.9, platelets 231, sodium 136, potassium 4.4, BUN 8, creatinine 0.62, glucose 87, blood pressure 144/82, heart rate 75, temperature 98.7 F, O2 saturation 99% on room air. Patient was given IV morphine sulfate 2 mg x 1, please see medication orders section in the computer. On my assessment, patient denied chest pain, no headache, no dizziness, no diaphoresis, no shortness of breath, no abdominal pain at this moment, no nausea, no vomiting, no fever, no chills. Patient was admitted for further evaluation and medical management. Course of hospitalization: Further assessment of the patient reveals he has a large left inguinal mass/hernia. Nonreducible. The patient states that he has had this pain to the inguinal area for the past three days, getting worse without any resolution of his inguinal hernia. He denies having any constipation, nausea/vomiting. Worsening of the pain prompted him to come to the emergency room. Surgical consultation was obtained. Patient went to the OR today, with repair of left inguinal hernia. Patient has been cleared for discharge by surgery. He was to follow up in one week. Patient will be discharged after tolerating oral intake, and having a bowel movement since he has been constipated for the past three days. Be discharged home on Motrin 800 mg every 8 hours as needed for [id number] pain. The patient will also be given an order for Keflex 500 mg p.o. 4 times a day x2 days. He is instructed to follow up with the discharge Clinic in one week as well as with Dr. Morales at his scheduled appointment next week. He is agreeable with discharge plan. All questions answered. Patient was also instructed not to lift anything greater than 3 lb or get the surgical site wet for one week. Physical examination General: Alert and Oriented x3. No acute distress. Well-nourished. Eyes: EOMI. Anicteric. HENT: Moist mucous membranes. Lungs: Clear to auscultation bilaterally. No accessory muscle use. Cardiovascular: Regular rate and rhythm. No murmur. No JVD. Abdomen: Soft, non-tender and non-distended. No palpable masses. Extremities: No edema. Non-tender. Skin: No rashes or lesions. Warm. Neurologic: No focal neurological deficits. CN II-XII grossly intact, but not individually tested. Psychiatric: Cooperative. Appropriate mood and affect. Total time spent with patient discussing and formulating plan of care: 35 minutes. This medical document was created using an electronic medical record system with [employer] system. Although this document has been carefully reviewed, there may still be some phonetic and typographical errors. These areas are purely typographical due to imperfections of the software programs, and do not reflect any compromise in the patient's medical care. Consults/Reason for consult General surgery: Left inguinal hernia Operations or Procedures 03/05/2024: Repair of left inguinal hernia Condition at Discharge: Stable Final Diagnosis/Problems List Left inguinal hernia Secondary Diagnosis: -left inguinal hernia, fat containing -history of right inguinal hernia repair -GERD -constipation Discharge Disposition: Home Discharge Instruct/Medications Diet: Regular Activity: See Comment Activity comment: Do not lift anything greater than 3 lb until being evaluated by surgeon in one week Follow Up/Referral: Discharge Clinic in one week Follow up with Dr. Morales, next week Medications: Motrin 800 mg p.o. q.8 hours as needed for [id number] pain Colace 100 mg p.o. b.i.d.. Stop with signs diarrhea Keflex 500 mg p.o. Q 6 hours x2 days 36 Discharge Statement: "Patient was advised to return to the ER or call 911 if any headaches, dizziness, shortness of breath, chest pain, abdominal pain, bleeding, fevers, or worsening of medical condition. Patient was counseled about treatment plan, medications, possible side effects, patientverbalized understanding. All questions were answered to the best of my ability. This discharge took greater then 30 minutes in planning, reviewing documentation, counseling the patient, and discussing with other team members." ASSESSMENT ASSESSMENT Assessment Left inguinal hernia Date of Service: Mar 05, 2024 Billing Provider: JAILENE SMITH NP Common Visit Codes: 94205-UXT/OBS DISCH DAY >30min JAILENE SMITH NP Mar 05, 2024 13:23
[2024-03-05 14:46] VITALS: BP 104/64; PULSE 62; RESP 20; TEMP 96.8; O2SAT 97
[2024-03-05] MEDS ORDERED: PROPOFOL 10 MG/ML 20 ML IV ONE (15:39)
--- NOTE | 2024-03-06 16:43 | PEER ---
Peer to Peer Review Time DATE: 03/06/24 TIME: 16:42 Review and Recommendations: Approved for inpatient level of care by Dr. Gomez. CHAPITO BENOIT MD Mar 06, 2024 16:43
== END 2024-03-05 15:40 | disposition home or self-care (01) | DRG 228 ==
LOC: ER 08:15 → OVERFLOW 13:35 → WEST WING 03-03 08:42
PROVIDERS: ADMIT Nurse Practitioner Family; ATTEND Nurse Practitioner Acute Care
PROC: 0YU60JZ Supplement Left Inguinal Region with Synthetic Substitute, Open Approach (ICD-10-PCS; principal; 2024-03-05 07:18)
DX: K40.90 Unilateral inguinal hernia, without obstruction or gangrene, not specified as recurrent (principal); M87.852 Other osteonecrosis, left femur; F17.210 Nicotine dependence, cigarettes, uncomplicated; K21.9 Gastro-esophageal reflux disease without esophagitis; K59.00 Constipation, unspecified
CPT/HCPCS: 36415; 71045; 74177; 80048; 80053; 81001; 83605; 85025; 85610; 85730; 88302; 96374; 96375; G0378; J0690; J1100; J1885; J2003; J2250; J2405; J2470; J2704